=== PATIENT | male | born 1945 | race Caucasian/White ===

== ENCOUNTER 2016-11-07 09:35 | Day surgery (SDC) | payer OTHER ==
[2016-11-06 13:17] LABS: HEMATOCRIT 38.2 % (42.0-52.0); HEMOGLOBIN 12.4 g/dL (14.0-18.0); MCH 35.9 PG (27-31); MCHC 32.5 g/dL (33-37); MCV 110.7 FL (81-99); MPV 10.2 FL (7.4-10.4); RBC 3.45 XMIL (4.7-6.1)
[2016-11-07] MEDS ORDERED: NS 250 ML ONE (09:53)
[2016-11-07] MEDS ORDERED: TYLENOL ONE (09:53)
[2016-11-07] MEDS ORDERED: BENADRYL ONE (09:53)
[2016-11-07 12:11] VITALS: BP 117/60
== END 2016-11-07 11:40 | disposition home or self-care (01) ==
LOC: OPS 09:35
PROVIDERS: ATTEND Internal Medicine Hematology & Oncology
DX: D69.6 Thrombocytopenia, unspecified (principal); Z79.02 Long term (current) use of antithrombotics/antiplatelets; Z79.899 Other long term (current) drug therapy; Z79.82 Long term (current) use of aspirin
CPT/HCPCS: 85027; 86850; 86900; 86901; J7050; P9035

== ENCOUNTER 2016-12-26 13:58 | Day surgery (SDC) | payer OTHER ==
[2016-12-25 13:19] LABS: HEMATOCRIT 30.1 % (42.0-52.0); HEMOGLOBIN 9.6 g/dL (14.0-18.0); MCH 37.4 PG (27-31); MCHC 31.9 g/dL (33-37); MCV 117.1 FL (81-99); MPV 9.8 FL (7.4-10.4); RBC 2.57 XMIL (4.7-6.1)
[2016-12-26 13:49] VITALS: BP 114/64
[~2016-12-26 13:58] MED LIST: BENADRYL ONE; NS 250 ML ONE; TYLENOL ONE
== END 2016-12-26 14:01 | disposition home or self-care (01) ==
LOC: OPS 13:58
PROVIDERS: ATTEND Internal Medicine Hematology & Oncology
DX: D69.6 Thrombocytopenia, unspecified (principal); Z79.02 Long term (current) use of antithrombotics/antiplatelets; Z79.82 Long term (current) use of aspirin; Z79.899 Other long term (current) drug therapy
CPT/HCPCS: 36415; 36430; 85027; 86850; 86900; 86901; J7050; P9035

== ENCOUNTER 2019-03-01 11:24 | Inpatient (IN) ==
--- NOTE | 2019-03-01 12:28 | Diag Imaging Result Doc PS360 ---
EXAM: XRAY PELVIS W/HIP 2-3VW LT HISTORY: fall, left hip pain TECHNIQUE: Pelvis and left hip, three views COMPARISON: None. FINDINGS: No fracture. No dislocation. IMPRESSION: No acute bony injury. Electronically signed by Christian Martinez 03/01/2019 12:26 PM
--- NOTE | 2019-03-01 12:33 | Diag Imaging Result Doc PS360 ---
EXAM: RIBS BILATERAL W/PA CHEST HISTORY: fall TECHNIQUE: Chest and bilateral rib detail, seven views COMPARISON: None. FINDINGS: Poor inspiratory effort. No contusion or pneumothorax. No displaced fracture or pleural effusion identified. IMPRESSION: No injury. Electronically signed by Christian Martinez 03/01/2019 12:30 PM
--- NOTE | 2019-03-01 12:59 | Diag Imaging Result Doc PS360 ---
EXAM : CT HEAD/C-SPINE W/O CONTRAST HISTORY: fall TECHNIQUE: 1. CT head without contrast 2. CT cervical spine without contrast COMPARISON: None. FINDINGS: Head: No parenchymal hemorrhage. No epidural or subdural hematoma. No subarachnoid hemorrhage. Left encephalomalacia from an old infarct involving the middle cerebral artery. No mass identified on this noncontrasted exam. No hydrocephalus. No skull fracture. Cervical spine: There is reversal of the normal curvature most pronounced at C4-5. Mild scoliosis with mild degenerative bone spurring. No precervical soft tissue swelling. No fracture. IMPRESSION: Head: No hemorrhage. No injury. Cervical spine: No acute fracture. This exam was performed using automated exposure control, adjustment of mA or kV according to patient size, and/or use of iterative reconstruction technique. Electronically signed by Christian Martinez 03/01/2019 12:57 PM
--- NOTE | 2019-03-01 13:07 | Diag Imaging Result Doc PS360 ---
EXAM: CT T-SPINE/L-SPINE W/O CON HISTORY: fall, back injury TECHNIQUE: 1. CT thoracic spine without contrast 2. CT lumbar spine without contrast COMPARISON: None. FINDINGS: Thoracic spine: There is mild scoliosis. No fracture to the thoracic spine. No pleural effusions, contusion or pneumothoraces on the imaged portions of the lungs. Lumbar spine: There is a mild superior endplate compression fracture to the L1 vertebra. No adjacent hematoma. No other fracture to the lumbar spine. No spinal stenosis. No disc herniation. IMPRESSION: Thoracic spine: No acute fracture Lumbar spine: Mild L1 compression fracture, age indeterminate. This exam was performed using automated exposure control, adjustment of mA or kV according to patient size, and/or use of iterative reconstruction technique. Electronically signed by Christian Martinez 03/01/2019 1:04 PM
[2019-03-01 13:37] LABS: BASO# 0.56 X1000 (0.0-0.2); BASO% 3.9 % (0.0-0.8); EOS# 0.02 X1000 (0.0-0.7); EOS% 0.1 % (0.0-10.0); HEMATOCRIT 36.8 % (42.0-52.0); HEMOGLOBIN 12.4 g/dL (14.0-18.0); IMM GRAN# 0.16 X1000 (0.0-0.04); IMM GRAN% 1.1 % (0.0-0.5); LYMPH# 2.11 X1000 (1.2-3.4); LYMPH% 14.6 % (20.5-51.1); MCH 33.6 PG (27-31); MCHC 33.7 g/dL (33-37); MCV 99.7 FL (81-99); MONO# 0.97 X1000 (0.11-0.59); MONO% 6.7 % (1.7-9.3); NEUT# 10.61 X1000 (1.4-6.5); NEUT% 73.6 % (42.2-75.2); PLT 84 X1000 (130-400); RBC 3.69 XMIL (4.7-6.1); RDW 14.4 % (11.5-14.5); WBC 14.43 X1000 (4.8-10.8)
[2019-03-01 13:42] LABS: INR 1.02; PROTIME 14.2 Seconds (11.0-16.0)
[2019-03-01 13:53] LABS: PTT 23.8 Seconds (22.3-41.8)
[2019-03-01 13:55] LABS: AGAP 13; ALBUMIN 4.4 g/dL (3.5-5.0); ALKALINE PHOSPHATASE 98 U/L (32-122); BUN 27 mg/dL (8-22); CALCIUM 8.8 mg/dL (8.8-10.2); CHLORIDE 100 mmol/L (98-107); COSMO 283; CREATININE 0.9 mg/dL (0.7-1.2); ESTIMATED GFR > 60; GLUCOSE 106 mg/dL (70-104); GOT 14 U/L (10-34); GPT 18 U/L (10-44); POTASSIUM 3.9 mmol/L (3.5-5.1); SODIUM 139 mmol/L (136-145); TCO2 26 mmol/L (25-35); TOTAL PROTEIN 6.6 g/dL (6.3-8.3)
[2019-03-01 14:00] LABS: BASO 3 % (0-1); LARGE PLATELETS 2+; LYMPHS 16 % (21-51); MONO 8 % (1-9); SEGS 73 % (42-75)
[2019-03-01 15:13] LABS: URINE SOURCE CLEAN CATCH
[2019-03-01 15:15] LABS: BILIRUBIN URINE NEGATIVE (NEGATIVE); BLOOD URINE NEGATIVE (NEGATIVE); COLOR YELLOW; GLUCOSE URINE NEGATIVE (NEGATIVE); KETONE URINE NEGATIVE (NEGATIVE); LEUKOCYTES URINE NEGATIVE (NEGATIVE); NITRITE URINE NEGATIVE (NEGATIVE); PH URINE 5.5; PROTEIN URINE 100 mg/dL (NEGATIVE); SP GRAVITY URINE 1.027; TURBIDITY URINE CLEAR (CLEAR); UR EPITHELIAL CELLS <10 /HPF (<10); URINE BACTERIA NEGATIVE /HPF; URINE RBC <10 /HPF (<10); URINE WBC <10 /HPF (<10); UROBILINOGEN URINE NORMAL (NORMAL)
--- NOTE | 2019-03-01 18:56 | PROVIDER DOCUMENTATION ---
This chart was entered by Nydia Goodman Scribe, acting as scribe for Grant Lam CRNP. HPI-Musculoskeletal Pain/Inj - GENERAL Chief Complaint: Fall Stated Complaint: FALL - CAN'T WALK Time Seen by Provider: 03/01/19 11:34 Source: patient, family - HX OF PRESENT ILLNESS-MUSKULOSKELTAL Nature of Presenting Problem: Patient is a 73 y/o male who presents to the ED with left hip pain since yesterday afternoon following a fall at 1530. Pt reports he fell approximately 1 foot off of a landing. Pt was ambulatory after the fall per . states, "He walked around and he sat in his chair for a while. When it was time for him to go to bed, he didn't want to walk. He can walk today but he is dragging his left leg." Pt has residual R sided weakness and expressive aphasia due to prior CVA. states aphasia is chronic and is at baseline. She also states mental status is at baseline. Pt is alert. Denies head injury or LOC. Also presents with ecchymoses to right side of mid-back. Quality of Pain: reports: aching Severity in ED: mild Onset/Duration: 24 hours ago Timing: still present Modifying Factors: worse with: palpation Any recent injury?: Yes (fall) Locality of Occurance: Home Similar Symptoms Previously?: No Recently seen or treated by another doctor?: No - FALL INJURY Location of Pain/Injury: reports: back, lower extremity, other (L side) Pain Radiation: reports: no radiation Reason for Fall: reports: unknown Symptoms prior to fall:: reports: none Loss of Consciousness: no loss of consciousness Injury Associated Symptoms: reports: back/neck pain, joint pain (L hip), other (L side pain) - BACK & NECK PAIN/INJURY Back/Neck Pain Location: reports: paraspinous muscles Context / Method of Injury: reports: fall Associated Symptoms: reports: denies symptoms History of Chronic Neck or Back Pain?: No - HIP/PELVIS PAIN/INJURY Hip Pain Location: reports: hip (L) Pain Radiation: reports: no radiation Context / Method of Injury: reports: fall Associated Symptoms: reports: denies symptoms Review of Systems - Adult - REVIEW OF SYSTEMS - ADULT Constitutional: denies: chills, fever Eyes: reports: no symptoms reported Ears, Nose, Mouth & Throat: reports: no symptoms reported Cardiovascular: denies: chest pain, palpitations Respiratory: denies: cough, shortness of breath Gastrointestinal: denies: abdominal pain, diarrhea, nausea, vomiting Genitourinary: reports: no symptoms reported Musculoskeletal: reports: back pain, joint pain (L hip), other (L side pain) Integumentary: reports: no symptoms reported Neurological: denies: dizziness/vertigo, seizure Psychiatric: reports: no symptoms reported Endocrine: reports: no symptoms reported Hematologic/Lymphatic: reports: no symptoms reported Allergic/Immunologic: reports: no symptoms reported All Other Systems: Reviewed and Negative Past History - Adult - PAST MEDICAL HISTORY-ADULT Review of Records: reports: Old Records Reviewed, Nursing Assessment Review, Medications Reviewed Major Childhood Illnesses: reports: denies history Neurological: reports: CVA, Seizures/Epilepsy - PRIOR SURGERIES/PROCEDURES Surgical/Procedure History: reports: appendectomy, orthopedic (extremity) (R hip) - IMMUNIZATION STATUS Childhood Immunizations: See Nurse Assessment Flu Vaccine: See Nurse Assessment - FAMILY HISTORY Family History: reviewed, not pertinent - SOCIAL HISTORY Smoking: quit greater than 1 year Substance Use: none/never Alcohol Use Frequency: sober (former use) Living Situation: family Physical Exam-Injury Related - Physical Exam-Injury Related Initial Vital Signs Reviewed: Yes General Appearance: alert, no apparent distress. negative: lethargic, slow to respond Eyes: PERRL/EOMI, pink conjunctivae Head, Ears, Nose, Mouth & Throat: normocephalic/atraumatic, moist mucous membranes, normal ENT inspection Neck: non-tender, full range of motion, supple, normal inspection. negative: C- spine tenderness, decresed ROM, ecchymosis, trachial deviation, tender lateral, tender midline, vertebral point tenderness Respiratory: chest non-tender, lungs clear, normal breath sounds, no pleuratic chest pain, no respiratory distress, no accessory muscle use, ecchymosis (Right side of middle back). negative: crepitus, flail chest, palpable fracture, paradoxical movements, rib tenderness Cardiovascular: normal peripheral pulses, regular rate, rhythm, no edema, no gallop, no murmur Abdominal Exam: normal bowel sounds, non tender, soft. negative: distended, gua rding, rigid, rebound, tenderness Back Exam: normal inspection, no CVA tenderness, no vertebral tenderness, ecch ymosis (Right side of middle of back.). negative: vertebral tenderness Extremity: normal range of motion, normal capillary refill, tenderness (Lateral aspect of left hip.) Integumentary: normal color, warm/dry, ecchymosis (to R mid back). negative: cyanosis, diaphoresis, jaundice, mottled, pallor Neurologic: grossly normal, no motor/sensory deficits, abnormal gait (Attempted to ambulate pt. Pt able to stand and bear weight on both legs, but will not put left foot forward as he usually does. states gait is altered.), aphasia (gargled speech- baseline from prior CVA per ), motor weakness (R sided weakness- baseline from prior CVA), other (Pt able to lift left leg off of the bed and able to move left leg. When he stands, he will no longer move left leg.) . negative: facial droop Psych/Mental Status: normal mood/affect, normal thought content, normal thought process - Glascow Coma Score Best Eye Response (Evy): (4) open spontaneously Best Verbal Response (Evy): (2) incomprehsible sounds (Aphasia/garbled speech due to prior cva) Best Motor Response (Evy): (6) obeys commands Progress - PLAN OF CARE/RESULTS Progress/Plan/Lab Results: Vital Signs - 8 hr 03/01/19 11:27 Temperature 97.3 F L Pulse Rate 82 Respiratory Rate 16 Blood Pressure 137/89 O2 Sat by Pulse Oximetry 97 Laboratory Results - last 24 hr 03/01/19 03/01/19 03/01/19 13:20 13:20 13:20 WBC 14.43 H RBC 3.69 L Hgb 12.4 L Hct 36.8 L MCV 99.7 H MCH 33.6 H MCHC 33.7 RDW Std Deviation 14.4 Plt Count 84 L MPV 10.0 Immature Gran % (Auto) 1.1 H Neut % (Auto) 73.6 Lymph % (Auto) 14.6 L Grant % (Auto) 6.7 Eos % (Auto) 0.1 Baso % (Auto) 3.9 H Immature Gran # (Auto) 0.16 H Neut # (Auto) 10.61 H Lymph # (Auto) 2.11 Grant # (Auto) 0.97 H Eos # (Auto) 0.02 Baso # (Auto) 0.56 H Segmented Neutrophils 73 Lymphocytes 16 L Monocytes 8 Basophils 3 H Large Platelets 2+ PT 14.2 INR 1.02 PTT (Actin FS) 23.8 Sodium 139 Potassium 3.9 Chloride 100 Carbon Dioxide 26 Anion Gap 13 BUN 27 H Creatinine 0.9 Estimated GFR/1.73 m2 > 60 BUN/Creatinine Ratio 30 Glucose 106 H Calculated Osmolality 283 Calcium 8.8 Total Bilirubin 0.90 AST 14 ALT 18 Alkaline Phosphatase 98 Troponin T Total Protein 6.6 Albumin 4.4 Globulin 2.2 Albumin/Globulin Ratio 2.0 Urine Source Urine Color Urine Turbidity Urine pH Ur Specific [place] Urine Protein Ur Glucose (Stick) Ur Ketones (Stick) Urine Blood Urine Nitrite Urine Bilirubin Urobilinogen Dipstick Urine Leukocytes Urine WBC (Auto) Urine RBC (Auto) U Epithel Cells (Auto) Urine Bacteria (Auto) 03/01/19 03/01/19 13:20 15:00 WBC RBC Hgb Hct MCV MCH MCHC RDW Std Deviation Plt Count MPV Immature Gran % (Auto) Neut % (Auto) Lymph % (Auto) Grant % (Auto) Eos % (Auto) Baso % (Auto) Immature Gran # (Auto) Neut # (Auto) Lymph # (Auto) Grant # (Auto) Eos # (Auto) Baso # (Auto) Segmented Neutrophils Lymphocytes Monocytes Basophils Large Platelets PT INR PTT (Actin FS) Sodium Potassium Chloride Carbon Dioxide Anion Gap BUN Creatinine Estimated GFR/1.73 m2 BUN/Creatinine Ratio Glucose Calculated Osmolality Calcium Total Bilirubin AST ALT Alkaline Phosphatase Troponin T < 0.010 Total Protein Albumin Globulin Albumin/Globulin Ratio Urine Source CLEAN CATCH Urine Color YELLOW Urine Turbidity CLEAR Urine pH 5.5 Ur Specific [place] 1.027 Urine Protein 100 A Ur Glucose (Stick) NEGATIVE Ur Ketones (Stick) NEGATIVE Urine Blood NEGATIVE Urine Nitrite NEGATIVE Urine Bilirubin NEGATIVE Urobilinogen Dipstick NORMAL Urine Leukocytes NEGATIVE Urine WBC (Auto) <10 Urine RBC (Auto) <10 U Epithel Cells (Auto) <10 Urine Bacteria (Auto) NEGATIVE Orders Category Date Time Status Nursing- Obtain EKG ONCE Care 03/01/19 11:53 Active Resuscitation Status Routine Care 03/01/19 18:[address] HEAD/C-SPINE W/O CONTRAST [CT] Stat Exams 03/01/19 11:[address] T-SPINE/L-SPINE W/O CON [CT] Stat Exams 03/01/19 11:55 Completed RIBS BILATERAL W/PA CHEST [RAD] Stat Exams 03/01/19 11:52 Completed XRAY PELVIS W/HIP 2-3VW LT [RAD] Stat Exams 03/01/19 11:52 Completed CBC WITH DIFF [HEME] Stat Lab 03/01/19 13:20 Completed COMPREHENSIVE METABOLIC PANEL [CHEM] Stat Lab 03/01/19 13:20 Completed PROTIME WITH INR [COAG] Stat Lab 03/01/19 13:20 Completed PTT [COAG] Stat Lab 03/01/19 13:20 Completed TROPONIN T Stat Lab 03/01/19 13:20 Completed UA NIMS W/REFLEX CULT [URINALYSIS] Stat Lab 03/01/19 15:00 Completed EKG [EKG] Stat Ther 03/01/19 11:53 Ordered Transfer/Admit Order [TRANSFER] Routine Transfer 03/01/19 18:08 Ordered 1600- Discussed admission with who states she wants to think about it. Disposition delayed. 1609- Dr. Mandy perez for admission. Pt and in agreement with admission plan. Result Diagrams: 03/01/19 13:20 03/01/19 13:20 - EKG 1 Time of EKG reading by physician:: 13:07 EKG Read and Signed by:: Casimiro Morrell EKG Interpretation (*Must complete 3 of following elements*): Normal Rate: 69 Rhythm: NSR [place]: normal QRS: LVH (minimal voltage criteria; may be normal variant) CT Interval: normal ST Wave: normal - XRAY 1 XRAY: Left XRAY Study: Pelvis, Hip (IMPRESSION: No acute bony injury. Electronically signed by Christian Martinez 03/01/2019 12:26 PM) 2 XRAY: Bilateral XRAY Study: Chest (IMPRESSION: No injury. Electronically signed by Christian Martinez 03/01/2019 12:30 PM), Ribs - CT/MRI 1 CT Study: Cervical Spine (IMPRESSION: Head: No hemorrhage. No injury. Cervical spine: No acute fracture. This exam was performed using automated exposure control, adjustment of mA or kV according to patient size, and/or use of iterative reconstruction technique. Electronically signed by Christian Martinez 03/01/2019 12:57 PM), Head 2 CT Study: Lumbar Spine (&T-spine: IMPRESSION: Thoracic spine: No acute fracture Lumbar spine: Mild L1 compression fracture, age indeterminate. This exam was performed using automated exposure control, adjustment of mA or kV according to patient size, and/or use of iterative reconstruction technique. Electronically signed by Christianbandar Martinez 03/01/2019 1:04 PM 03/01/19 1875) - CONSULTS/PCP/HOSPITALIST Notification #1 *Consult/PCP/Hospitalist*: Dr. Galvan Time Discussed: 16:25 Reason/Comments: admission Consult Disposition: Will see in ED (Md states he will be here in approximately 30 min and will enter orders.) Departure - Departure Date of Disposition Decision: 03/01/19 Time of Disposition Decision: 16:29 DIAGNOSIS: Compression fracture, Altered gait Fall Qualifiers: Encounter type: initial encounter Qualified Code(s): W19.XXXA - Unspecified fall, initial encounter Disposition: ADMITTED INPATIENT 09 Certified Medical Emergency: Emergent Condition: Stable Referrals and Follow-Ups: Denilson Rizvi MD [Primary Care Provider] - - Critical Care Note This patient required my direct & personal management of CC.: No Attestation - Physician/ HECTOR Attestation Patient care was provided by Advanced Practice Provider:: Yes Advanced Practice Provider:: Grant Lam Advanced Practice Provider documentation review:: The Mid-level provider documentation, treatment plan and medical decision making was reviewed by the physician who agrees with all treatment and medical decision making by the P. The physician spent face to face time with patient:: No Advanced Practice Provider documentation review:: Supervising physician onsite and consulted in the evaluation and care of this patient. The physician did not have a face to face encounter with the patient. - NIH Stroke Scale NIH Type: Initial Evaluation Level of Consciousness: 0-Alert LOC Commands (ask to open & close eyes;make a fist, let go): 0-Obeys Both Correctly Best Gaze (horizontal eye movement): 0-Normal Visual (use finger movement, counting or visual threat): 0-No Visual Loss Facial Palsy (show teeth or raise eyebrows & close eyes tght: 0-Symmetrical Movement Motor Function-left arm: 0-Normal Motor Function-right arm: 2-Some Effort Against [place] Motor Function-left le-Some Effort Against [place] Motor Function-right le-Some Effort Against [place] Sensory(pin prick to face,arms,trunk,legs-compare side/side): 0-No Ataxia Best Language(name item/read sentence.Ex-Down to Earth): 2-Severe Aphasia (chronic) Dysarthria(Pt read words or say words Ex.Mama,Tip-Top,Thanks: 2-Near Unintelligible (chronic) This chart was documented by the indicated scribe, (Nydia Goodman, Scribe) and accurately reflects the services I performed and decisions made by me, Grant Lam CRNP, as attested by the provider's signature.
--- NOTE | 2019-03-01 20:58 | HISTORY AND PHYSICAL ---
CHIEF COMPLAINT: Inability to walk. HISTORY OF PRESENT ILLNESS: Mr. Pedraza is a 73-year-old gentleman who was brought to the emergency room by his and daughter after it became apparent this morning that he would not recover his ability to walk. He had a left carotid occlusive stroke in 2004. This caused a right hemiparesis and aphasia. He is left handed. He normally is able to walk quite well and independently, but with a gait favoring his right leg. His speech remains garbled with expressive aphasia, but he is able to communicate through gestures. Yesterday afternoon he was in his den and lost his balance and fell, hitting his right flank. His was able to get him back to his feet, and they walked up several stairs from the converted garage into the house and to his recliner. He did not seem to have difficulty walking at that time. When it was time for bed, he was unable to get up out of the recliner, and his let him sleep in the recliner all night. This morning, although he could move both legs and seems to have relatively normal strength, he does not remember how to walk, and his feet seem stuck to the floor. He is alert, and when I entered the emergency room where he was, he was eating a fast food dinner and seemed to be swallowing fine. He has a history of myelodysplastic syndrome followed by Dr. Ortiz since approximately 2016. He has had multiple bone marrow biopsies and has had several courses of a chemotherapeutic agent, Dacogen, at Dr. Ortiz's office. His original stroke in 2004 was evaluated in [place], and his neurologist was Dr. Dorene Angel. Dr. Angel had him on aspirin 325 mg plus Plavix [address] Ortiz began seeing him, the aspirin was reduced to 81 mg. His primary care provider is YESICA Olivo. PAST MEDICAL HISTORY: In addition to the above, he has a vague history of cardiovascular disease and high cholesterol. PAST SURGICAL HISTORY: Remarkable for a hip fracture in 2005. He also has a history of appendectomy and left knee surgery. He has a history of allergy to Naproxen. FAMILY HISTORY: Mother had rheumatoid arthritis. He has a sister with thyroid disease and non- Hodgkin lymphoma. SOCIAL HISTORY: He is and lives with his . He has 2 adult daughters. 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 He does not use alcohol or tobacco but has a very remote history of smoking. REVIEW OF SYSTEMS: GENERAL: No fever, chills, headache, night sweats or weight loss. HEENT: Denies any changes in vision or hearing. He wears glasses. CARDIOVASCULAR: No recent chest pain, angina, ischemic heart disease or valvular heart disease. No history of palpitations or syncope. RESPIRATORY: No cough, shortness of breath, or sputum production. GI: No abdominal pain. Appetite has been good. No diarrhea, constipation, nausea or vomiting. : No dysuria. MUSCULOSKELETAL: He denies back pain. He does have some right flank soreness where he had a bruise from falling last night. DERMATOLOGIC: No rash or itching. NEUROLOGIC: Cranial nerve examination is unremarkable. He does have some apraxia and decreased coordination of his right hand. PSYCHOLOGICAL: He is alert and does not appear depressed. ENDOCRINE: No history of diabetes or thyroid disorders. PHYSICAL EXAMINATION: VITAL SIGNS: Unremarkable. See nurse's notes. GENERAL APPEARANCE: Alert, cooperative gentleman who appears somewhat younger than his stated age. He is cheerful and pleasant, although his speech is an unintelligible word salad. HEENT: Pupils equal, round and reactive to light. Extraocular movements are intact. Oropharynx is benign. NECK: Supple with no adenopathy, JVD, thyromegaly or bruits. CHEST: Clear to auscultation and percussion anteriorly and posteriorly. CARDIOVASCULAR: Regular rate and rhythm. No murmurs or gallops. ABDOMEN: Soft, flat and nontender with active bowel sounds. There is no guarding or rebound tenderness. Back: no point tenderness, + recent ecchymoses right flank and left SI areas GENITAL/RECTAL EXAM: Omitted. EXTREMITIES: Motor strength is at least 4/4 in both legs; however, when he attempts to walk, his feet seem glued to the ground. 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 His right arm has much less dexterity. His left arm is unremarkable. LABORATORY DATA: Mild leukocytosis with a white blood count of 14,000. Mild anemia with hemoglobin of 12.4, hematocrit of 36.8. Chemistry profile is normal with a glucose of 6. CT of the head and C-spine shows old left encephalomalacia. CT of the thoracic and lumbar spine shows mild superior endplate compression of the L1 vertebra with no adjacent hematoma, and age is felt to be indeterminate. The lack of tenderness on his back suggests that it is a chronic condition. ASSESSMENT: 1. 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 I see no obvious connection between these. It is possible he could have had another small stroke, and that led to the fall and his current apraxia. 2. History of myelofibrosis/myelodysplastic syndrome. 3. History of pulmonary embolism. 4. Mild leukocytosis with a white blood count of 14,000. 5. Mild anemia with hemoglobin of 12.4, hematocrit of 36.8. TREATMENT PLAN: Will admit to Dr. Robison for observation and stabilization. I think he deserves an MRI scan to look for a recent stroke, and he may require physical therapy. His seems quite capable and may be able to handle him at home. She already has a gait belt around his waist and says that he used this 15 years ago when he had a stroke. cc: Simone Galvan MD MTDD
[2019-03-01] MEDS: PLAVIX PO SCH (22:26)
[2019-03-01] MEDS: LOVENOX SUBQ SCH (22:26)
[2019-03-02] MEDS: ASPIRIN PO SCH (10:14)
--- NOTE | 2019-03-02 10:55 | PROGRESS NOTE ---
DATE: 03/02/2019 SUBJECTIVE: A 73-year-old was brought in the emergency department. and daughter brought him in after apparently he would not recover his ability to walk. 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 He is left handed. Normally able to walk quite well independently, but the gait favoring his right leg. His speech remains garbled and expressive aphasia, but he is able to communicate with gestures. Yesterday. the day before admission, he was in his den, lost his balance, fell, hitting his right flank. His was able to get him back to his feet. He walked up several flights of stairs from the converted garage into the house and to his recliner. He did not seem to have difficulty walking at the time. When it was time for bed he was unable to get out of the recliner. His let him sleep in the recliner that night. In the morning, could not move. Both leg seemed to be relatively normal strength. He did not seem to remember how to walk and his feet seen stuck to the floor. He was alert when he entered the emergency room. He has a history of myelodysplastic syndrome followed by Dr. Ortiz apparently since 2016, multiple bone marrow biopsies, several courses of chemotherapeutic agents and Decadron per Dr. Ortiz. His original stroke was 2004. Evaluated in [place] by neurologist. Dr. Dorene Angel had him on aspirin 325 mg a day, Plavix 75 mg a day. Past history includes hip fracture in 2005, history of appendectomy and left knee surgery so admitted with new onset of gait a apraxia following his fall. I see no obvious connection between these and possibly could have another stroke. He has underlying history of myelofibrosis, myelodysplastic syndrome, history of pulmonary embolism in the past. He presented with mild leukocytosis. Hemoglobin was 12, hematocrit was 36. EXAM: He is awake. He was he was sleeping but easy to arouse awake and had no complaints.Vital Signs: Temp 97.7 degrees, pulse 78, respirations 16, blood pressure 131/70. HEENT: Pupils are equal and round. Lungs: Clear in all lung arshad anterolateral. Cardiovascular: Regular rhythm and rate without murmur or S3. Abdomen: Soft. Skin: Warm and dry. LABS: From yesterday, white count 14,430, hematocrit 36, platelet count 84,000 sodium 139, potassium 3.9, chloride 100, BUN 27, creatinine 0.9, AST was 14, ALT was 18. Troponin less than 0.01. Urinalysis unremarkable. Review of all his films: Head and cervical spine CT, no hemorrhage, no injury, no acute fractures. Hip and pelvis x-ray: No acute bony injury. Ribs and chest x-ray no injury. No sign of fractured ribs. Thoracic, lumbar spine CT: Thoracic spine no acute fracture. Lumbar spine, mild L1 compression fracture age indeterminate. He has his left sided partial paresis seems to be unchanged. His expressive aphasia unchanged. He seems to understand questions and can respond appropriately. ASSESSMENT AND PLAN: 1. New onset severe gait apraxia following a fall. I do not see any bony fractures but possible L1 fracture which appears to be old age indeterminate. He could have had another stroke. We will check carotids and echocardiogram. Watch and see if there is signs of atrial fibrillation. Ask Neurology to assist tomorrow. 2. History of myelofibrosis, myelodysplastic syndrome. Aware. His blood counts look stable. 3. History of pulmonary embolism in the past. 4. Mild leukocytosis, nonspecific, could be just bone marrow demargination or could be related to his myelofibrosis. 5. Mild anemia. Once again, could be related to his fibrosis. REVIEW OF ORDERS: He is on his aspirin 81 mg a day, Plavix 75 mg a day. He is getting Lovenox 40 mg subcutaneous q.24 hours for DVT prophylaxis. MRI is planned for of his head. I will get Neurology involved tomorrow. Dr. Ortiz is aware of his of his admission. Repeat his CBC and electrolytes tomorrow. We will check T4, TSH, B12 and folate. cc: MD Simone Mejias MD
[2019-03-02] MEDS ORDERED: DULCOLAX PR ONE (15:33)
[2019-03-02] MEDS ORDERED: MILK OF MAGNESIA PO PRN (15:34)
[2019-03-02] MEDS: PLAVIX PO SCH (21:55)
[2019-03-02] MEDS: LOVENOX SUBQ SCH (21:55)
[2019-03-03 07:30] LABS: BASO# 0.35 X1000 (0.0-0.2); BASO% 3.2 % (0.0-0.8); EOS# 0.06 X1000 (0.0-0.7); EOS% 0.6 % (0.0-10.0); HEMATOCRIT 34.8 % (42.0-52.0); HEMOGLOBIN 11.5 g/dL (14.0-18.0); IMM GRAN# 0.04 X1000 (0.0-0.04); IMM GRAN% 0.4 % (0.0-0.5); LYMPH# 1.98 X1000 (1.2-3.4); LYMPH% 18.2 % (20.5-51.1); MCH 33.1 PG (27-31); MCV 100.3 FL (81-99); MONO# 0.49 X1000 (0.11-0.59); MONO% 4.5 % (1.7-9.3); MPV 10.7 FL (7.4-10.4); NEUT# 7.95 X1000 (1.4-6.5); NEUT% 73.1 % (42.2-75.2); PLT 80 X1000 (130-400); RBC 3.47 XMIL (4.7-6.1); RDW 14.9 % (11.5-14.5); WBC 10.87 X1000 (4.8-10.8)
[2019-03-03 07:57] LABS: AGAP 14; BUN 32 mg/dL (8-22); CALCIUM 8.5 mg/dL (8.8-10.2); CHLORIDE 100 mmol/L (98-107); COSMO 287; CREATININE 0.7 mg/dL (0.7-1.2); ESTIMATED GFR > 60; GLUCOSE 106 mg/dL (70-104); MAGNESIUM 2.2 mg/dL (1.5-2.7); POTASSIUM 3.8 mmol/L (3.5-5.1); SODIUM 140 mmol/L (136-145); TCO2 26 mmol/L (25-35)
[2019-03-03 08:21] LABS: FREE T4 1.23 ng/dL (0.93-1.70); TSH 3.41 uIUmL (0.27-4.20)
--- NOTE | 2019-03-03 08:47 | EKG Report ---
Test Performed on : 03/01/2019 1:07:11 PM Test Reason : loss of balance Blood Pressure : / mmHG Vent. Rate : 069 BPM Atrial Rate : 069 BPM P-R Int : 126 ms QRS Dur : 090 ms QT Int : 420 ms P-R-T Axes : -13 -17 006 degrees QTc Int : 450 ms Normal sinus rhythm. Moderate voltage criteria for LVH, may be normal variant Borderline ECG No previous ECGs available Unconfirmed Result
--- NOTE | 2019-03-03 09:59 | PROGRESS NOTE ---
DATE: 03/03/2019 SUBJECTIVE: Mr. Pedraza is feeling better. His legs are stronger. He did well with physical therapy. I think the plan is to get an MRI of his head today. I was going to ask neurology to look and see. It looks like this may have been just musculoskeletal from laying in the recliner and a recent fall. I am not sure there is any new neurologic progression. His says his speech on his left side seems to be about the same. He is swallowing fine. He understands the conversation. OBJECTIVE: Temperature 98 degrees, pulse 76, respirations 18, blood pressure 135/83. Pupils are equal and round. Lungs are clear in all lung arshad. Cardiovascular exam regular rhythm and rate without murmur or S3. Abdomen is soft. Skin is warm and dry. LABORATORY: White count 68151, hematocrit 34, and platelet count 80,000. Sodium 140, potassium 3.8, chloride 100, BUN 32, and creatinine 0.7. B12 was greater than 2,000. TSH 3.41, T4 is 1.23. ASSESSMENT AND PLAN: 1. New onset severe gait apraxia following a fall. Seems to have improved. Physical Therapy evaluating. He did have a questionable subacute L1 partial vertebral fracture, but he does not seem to be in a lot of pain, and I am not sure that that has contributed to anything. We will check an MRI of his head. Ask Neurology to evaluate. 2. History of myelofibrosis. Myelodysplastic syndrome. His counts look pretty stable. 3. Distant history of pulmonary embolism in the past. 4. Mild leukocytosis, nonspecific. I do not find any source of infection. 5. Mild anemia I think related to his myelofibrosis and myelodysplastic syndrome. ORDERS: He is on Plavix 75 mg a day, aspirin 81 mg a day. He is getting Lovenox 40 mg subcutaneous q.24 hours. I appreciate the help. Dr. Ortiz following. Dr. Leos following. His MRI of the brain, I think, was ordered, and I do not think that has been done yet. cc: MD Simone Mejias MD
[2019-03-03] MEDS: ASPIRIN PO SCH (10:39)
--- NOTE | 2019-03-03 13:11 | Diag Imaging Result Doc PS360 ---
MRI BRAIN W/WO CONTRAST - 03/02/2019 INDICATION: gait apraxia COMPARISON: Head CT 03/01/2019 FINDINGS: There is no area of restricted diffusion. There is a stable large area of old encephalomalacia of the right cerebral hemisphere involving the entire middle cerebral artery territory. There is some surrounding gliosis. There is some minimal cerebral white matter chronic microvascular disease. There is complete occlusion of the supraclinoid left internal carotid artery. The left-sided cerebral arteries are apparently perfused by an anterior communicating artery. No intracranial mass or hemorrhage. IMPRESSION: No acute process. Electronically signed by Rishi Albarran 03/03/2019 1:09 PM
[2019-03-03] MEDS ORDERED: GRANIX SUBQ ONE (13:29)
--- NOTE | 2019-03-03 13:55 | CONSULTATION ---
DATE OF CONSULTATION: 03/03/2019 Mr. Pedraza is 73 years old and he had a recent fall with persistent gait difficulty. History from the patient is difficult because of his baseline dysphasia. History is provided by his attentive and review of the hospital records. Mr. Pedraza had large dominant left hemisphere stroke about 15 years ago with persistent right hemiparesis and dysphasia. His recovery was incomplete. He had hemiparetic gait after that. Receptive language function recovered more than expressive function. Three days ago, he was helping his move a heavy box through his home, trying to get it up some steps. He suddenly fell backward and bruised his left arm. was present and immediately attended him. She helped him prop up so he could rest a little while before trying to stand. She got some help from neighbor and he was helped to a sitting position. He rested a while and then seemed to have difficulty when he attempted to stand. noted that his feet seemed stuck to the floor. He could move each leg while seated. His power seemed to be near baseline while seated. 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 There was no change in his language deficit. She is certain that he did not strike his head when he fell. There was never altered consciousness or altered awareness. He was not able to get to bed that night so he slept in the recliner. Next morning, he was still unable to walk so he presented to the emergency room, was evaluated and admitted. This morning, gait has been much improved and reports he was able to take steps with assistance of physical therapy. According to , she has never seen him have this gait appearance before. This is clearly different from the initial gait difficulty he had after stroke 15 years ago. He had not had any recent deterioration in gait. There is no history of head injury. He has not had other stroke. He has not seemed more forgetful than baseline. He is being treated for myelodysplastic disorder. He had a course of chemotherapy the morning before his recent fall. Sometimes he seems a little bit tired after those treatments, but has never noticed any gait difficulty specifically associated with those treatments. Past history is remarkable for stroke as above, myelodysplastic syndrome as above, right hip fracture 2005, left knee surgery. He had pulmonary embolus within a few weeks of his initial stroke while he was in rehab. He has not had any other blood clotting problems. His medicines include aspirin and clopidogrel together. Aspirin dose has been reduced. He has low platelet count which attributes to his chemotherapy. Lab work here showed WBC count 14,000 initially, down to 10,000 on second check. Platelet count has been around 80,000. BUN climbed from 20s into 30s. Blood sugars have been stable right around 100. We do not have urine drug screen this admission. He has been afebrile this admission. Heart rate has ranged 70s to 100s. Systolic blood pressures have ranged 120s to 140s. Initial noncontrast CT showed the old left encephalomalacia with nothing acute. Brain MRI today done with and without contrast shows the old left hemisphere infarction but nothing acute, no new lesion, no bleeding, no mass. On exam, Mr. Pedraza is awake, alert, attentive. He seems appropriate. He said a few words that I could understand but mostly communicated with gestures, mostly head nodding. He followed simple commands inconsistently. He was not able to follow more complicated commands. He has full visual arshad tested grossly by confrontational finger counting. Facial motility remains a little bit diminished on the right. Gag is intact. Tongue is midline. He can hear. He has 3/5 to 4/5 power in the right limbs. On the left, power is good throughout. Initially, he did not raise his left arm well at the shoulder but I believe this is related to discomfort and there is a good bit of bruising mostly along the posterior aspect of the left upper arm. Allowing for that, I believe he has good power and baseline level of muscle strength in the left arm. Left leg power is good. He did well with left [id number]. He did rapid alternating movements well with the left hand. Tone is increased in the right limbs. I did not test his gait extensively but I did help him to a standing position and he was able to take 1 step to transfer to bedside commode. IMPRESSION: 1. Right hemiparesis and dysphasia. I believe these deficits are at baseline. 2. Recent fall as he was attempting to move a heavy box up some steps. There is report that there was no head injury or altered consciousness. 3. Gait difficulty apparent after his recent fall. 's description is very suggestive of apraxia, but acute onset is not typical and she reports he has not had definite cognitive impairment. Apraxia might be associated with acute infarction, but we do not find evidence of that on MRI. Apraxia might be associated with medication or other ingestion, but there is no history of that. Gait apraxia is often seen with Parkinson's disease, but history does not suggest any chronic apraxia and he does not have other parkinsonian features. I wonder if he might have had combination of gait problems including old hemiparetic gait, chronic degenerative joint problems, previous right hip fracture, previous left knee surgery, possibly new musculoskeletal discomfort after falling. He seems significantly improved now. I think we should continue gait training with physical therapy. I do not think we need any other neurologic workup urgently. If he continues to have difficulty, we might consider EMG later. Thanks for asking Neurology to see Mr. Pedraza. cc: MD Simone Osorio III, MD MTDArnold
--- NOTE | 2019-03-03 16:34 | DISCHARGE SUMMARY ---
ADMISSION DATE: 03/01/2019 DISCHARGE DATE: HISTORY OF PRESENT ILLNESS/HOSPITAL COURSE: This is a 73-year-old had recent fall and persisting gait difficulty. History from patient difficult because of baseline dysphagia. History provided by his who is very attentive. He 15 years ago had a CVA with persistent right hemiparesis and dysphagia and this really has not changed much. He has a right hemiparetic gait but is walking. Apparently, he was carrying a heavy box, trying to get up some steps. He suddenly fell backward and bruised his left arm. was present and attended to him, propped him up so he could rest a little before trying to stand. She got some help from her neighbor and helped him into sitting position. He rested a while and then seemed to have difficulty when he attempted to stand. noted that at first his feet seemed stuck to the floor. He could move each leg while seated. His power seemed to be near baseline while seated. 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 There was no change in his language deficit. He was certain he did not strike his head when he fell. There was never altered consciousness or altered awareness. He was not able to get out of bed that night, so he slept in a recliner. Next morning he was unable to walk as he presented to the emergency room, was evaluated and admitted. His gait improved the following day, able to take steps with assistance of physical therapy and so we did a CT of his head and neck and it was unremarkable. No sign of fracture. We did an MRI of his head, which was unremarkable. Did not show any new CVA. So, no acute process. No area of restricted diffusion. Stable large area of old encephalomalacia in the right cerebral hemisphere involving the entire middle cerebral artery territory. There was some surrounding gliosis, minimal cerebral white matter, chronic microvascular disease. Complete occlusion of the supraclinoid left internal carotid artery. The left side cerebral arteries are apparently perfused by the anterior communicating artery and no sign of mass or hemorrhage. The patient felt better, felt that his symptoms probably are combination of gait difficulty. Dr. Leos evaluated gait difficulty apparent after his recent fall. 's description is very suggestive of apraxia, but acute onset of apraxia is not typical, and he has not had any definite cognitive impairment. Apraxia may be associated with acute infarction. I do not find any evidence on the MRI or neurologic exam. Apraxia might be associated with medication or other ingestion, but there is no history to support that. Gait apraxia is often seen with Parkinson disease, but history does not suggest that either. He has not had any history of chronic apraxia and does not have Parkinson's like features, so suspect this is a combination of a gait problems including old hemiparetic gait, chronic degenerative joint disease, previous right hip fracture, previous left knee surgery, possibly new musculoskeletal discomfort after the fall. So, we will let him go home. We will continue his previous medications. Blood pressures look good. His lab was really unremarkable. He had a mild leukocytosis when he came in, which I suspect is probably just stressed demyelinating process. Renal function looks good and electrolytes so we will let him go. MEDICATIONS: He takes aspirin 81 mg a day, Plavix 75 mg a day, milk of magnesia as needed, and he gets his Granix 480 mcg subcutaneous daily so he can either get that today or tomorrow. That is for his myelodysplastic syndrome. Note that is counts in regards to myelodysplastic syndrome look good. White count 10,870, hematocrit is 34, platelet count is 80,000. cc: MD Simone Mejias MD
[2019-03-03] MEDS: PLAVIX PO SCH (20:25)
[2019-03-03] MEDS: LOVENOX SUBQ SCH (20:25)
[2019-03-04] MEDS ORDERED: GRANIX SUBQ SCH (09:00)
[2019-03-04 09:52] LABS: BASO# 0.56 X1000 (0.0-0.2); BASO% 0.7 % (0.0-0.8); EOS# 0.06 X1000 (0.0-0.7); EOS% 0.1 % (0.0-10.0); HEMATOCRIT 31.8 % (42.0-52.0); HEMOGLOBIN 10.6 g/dL (14.0-18.0); IMM GRAN# 2.38 X1000 (0.0-0.04); IMM GRAN% 3.1 % (0.0-0.5); LYMPH# 2.39 X1000 (1.2-3.4); LYMPH% 3.1 % (20.5-51.1); MCH 33.5 PG (27-31); MCHC 33.3 g/dL (33-37); MCV 100.6 FL (81-99); MONO# 0.88 X1000 (0.11-0.59); MONO% 1.1 % (1.7-9.3); MPV 9.7 FL (7.4-10.4); NEUT# 71.68 X1000 (1.4-6.5); NEUT% 91.9 % (42.2-75.2); PLT 66 X1000 (130-400); RBC 3.16 XMIL (4.7-6.1); RDW 14.8 % (11.5-14.5); WBC 77.95 X1000 (4.8-10.8)
[2019-03-04] MEDS: ASPIRIN PO SCH (09:53)
[2019-03-04 10:00] LABS: BANDS 6 % (0-1); LYMPHS 4 % (21-51)
[2019-03-04 10:05] LABS: SEGS 90 % (42-75)
[2019-03-04 10:06] LABS: AGAP 11; ALB/GLOB RATIO 1.6; ALBUMIN 3.6 g/dL (3.5-5.0); ALKALINE PHOSPHATASE 95 U/L (32-122); BUN 21 mg/dL (8-22); CALCIUM 8.5 mg/dL (8.8-10.2); CHLORIDE 104 mmol/L (98-107); COSMO 286; CREATININE 0.6 mg/dL (0.7-1.2); ESTIMATED GFR > 60; GLUCOSE 123 mg/dL (70-104); GOT 14 U/L (10-34); GPT 16 U/L (10-44); SODIUM 141 mmol/L (136-145); TCO2 26 mmol/L (25-35); TOTAL BILIRUBIN 1.17 mg/dL (0.20-1.00); TOTAL PROTEIN 5.8 g/dL (6.3-8.3)
--- NOTE | 2019-03-04 16:29 | PROGRESS NOTE ---
DATE: 03/04/2019 SUBJECTIVE: Seems to be doing better. His PT report, he has difficulty walking. The patient continues to participate. He did maintain balance with hand support, full weightbearing, minimal assistance, front wheel walker so we will see how we do. If he is not significantly better tomorrow, then they may want to consider rehab. OBJECTIVE: Vital Signs: He remains afebrile, temperature 98.5 degrees, pulse 80, respirations 22, blood pressure 119/74. HEENT: Pupils are equal and round. Lungs: Clear in all lung arshad. Cardiovascular: Regular rate without murmur or S3. Abdomen: Soft. Skin: Warm and dry. LABORATORY STUDIES: Urine output is 1300 mL. Note his white blood cell count went up to 77,000, hematocrit 31, hemoglobin 10. Sodium 141, potassium 4.0, chloride 104, BUN 21, creatinine 0.6. B12 was 2000. His folate was 27. ASSESSMENT AND PLAN: Apraxia, acute onset trouble with walking. Did not find any new evidence of stroke or neurologic deficits and suspect it is multifactorial. He does seem to be improving, so we will see where we are tomorrow in regards to whether we need to go to rehab for a while. He is on Plavix 75 mg at bedtime, aspirin 81 mg a day. He got his Granulex 480 mcg subcutaneous which he gets daily and his white count jumped up to 70,000. cc: MD Simone Mejias MD
--- NOTE | 2019-03-04 20:54 | HEMO/ONC CONSULTATION ---
DATE: 03/03/2019 REASON FOR CONSULTATION: Patient known to Dr. Ortiz, currently on therapy for myelodysplasia syndrome. HISTORY OF PRESENT ILLNESS: Thank you for the consultation. Mr. Pedraza is a pleasant 73-year-old gentleman, known to Dr. Ortiz, with history of MDS, currently on therapy with Dacogen, most recently treated with 5 day cycle last week on 02/24/2019, through 02/28/2019. Dr. Ortiz has been consulted to provide oncology care during hospitalization. Patient was admitted on 03/01/2019 secondary to a fall he sustained on the evening of 02/28/2019. His and neighbor helped him up from his fall and assisted him up several stairs to his family room, where he was seated in his recliner. Later at bedtime, he was able to stand, but unable to move his feet. Patient slept in a recliner over the night. His again, the following morning, was unable to get the patient to ambulate and he was brought to [facility] for further evaluation, with admission at that time. Mr. 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 He was ambulating with a weakened gait secondary to residual weakness; however, his indicates that he has continued to be able to ambulate well with minimal assistance until the evening of his fall and the morning thereafter. The patient was scheduled for an outpatient visit to [facility] today at which time he was scheduled to receive treatment with Neulasta for high risk neutropenic complications associated with his current therapy for MDS. As the patient is now hospitalized, we will plan for inpatient therapy accordingly. We will continue to follow during patient's hospitalization. PAST MEDICAL HISTORY: 1. MDS. 2. Stroke. 3. Cardiovascular disease. 4. Hypercholesterolemia. 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 PAST SURGICAL HISTORY: 1. Hip fracture repair, 2005. 2. Appendectomy. 3. Left knee surgery. FAMILY HISTORY: Mother with rheumatoid arthritis; sister with thyroid disease and non-Hodgkin lymphoma. SOCIAL HISTORY: Alcohol: None. Tobacco: Currently none. Remote history positive for cigarette smoking. Substance use: None. ALLERGIES: Naproxen. REVIEW OF SYSTEMS: Secondary to dysphasia, patient's is primary provider of information regarding review of systems. General: Family denies recent fever, chills, night sweats, weight loss or acute neurological changes. HEENT: No headaches, no vision changes, no diminished hearing. Patient wears glasses. Cardiovascular: No recent chest pain, palpitations, or syncopal episode. Respiratory: No cough, shortness of breath. GI: No abdominal pain, nausea, vomiting, constipation, or diarrhea. Appetite has been stable, good. : No pain with urination, no blood, no frequency. Musculoskeletal: Patient does report pain in the right flank region associated with fall. Neurologic: Patient does have residual right-sided weakness as well as dysphasia from previous stroke, associated with some apraxia currently. Psychological: No complaints. PHYSICAL EXAMINATION: Vital Signs: Afebrile, pulse 82, blood pressure 137/83, respiratory rate 18, oxygen saturation 97% on room air. General Appearance: Patient is awake, alert, cooperative, seen lying in hospital bed at [facility]. Patient does verbalize with dysphasia noted. He does nod and gesture appropriately. HEENT: Atraumatic, normocephalic. PERRL. EOMI. Neck: Supple. Chest: Bilateral breath sounds. Clear to auscultation. Heart: S1, S2. Regular rate and rhythm with no murmur, gallop, or rub. Abdomen: Soft, nondistended, nontender. Bowel sounds positive. Back: Right CVA tenderness noted with significant ecchymosis present, secondary to recent fall. Extremities: Lower extremities 3+/4 right/left. Patient unable to ambulate without assistance. Gait not assessed. Patient's reports he has taken several steps with assistance of 2 physical therapists earlier today. Skin: Clean, warm, dry, and intact. Scattered bruising on the right flank and upper extremities noted from recent fall. LABS: WBC 10.87, hemoglobin 11.5, hematocrit 34.8, platelet count 80,000. Sodium 140, potassium 3.8, chloride 100, CO2 26, BUN 32, creatinine 0.7, glucose 106. IMAGING: CT of the head negative. Hip and pelvic x-ray negative. Chest x-ray with rib view negative. Thoracic and lumbar spine CT: Thoracic with no acute abnormality. Lumbar with mild L1 compression fracture of indeterminate age. Patient is asymptomatic on assessment. MRI of the brain performed today; results pending. ASSESSMENT AND PLAN: 1. Myelodysplastic syndrome, currently on therapy with Dacogen, treated last week x5 doses, Sunday02/24/2019 through Sunday02/28/2019. The patient was due for outpatient Neulasta injection today for high risk neutropenic complication. We will order Granix to be given today followed by daily doses for a total of 5. We will continue to monitor counts closely, and adjust or modify doses as needed. 2. 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 Workup as noted above. Neurology consulted. Physical Therapy consulted and working with patient accordingly. 3. Cerebrovascular accident, secondary to left carotid occlusion in 2004, with residual right- sided weakness and dysphasia. Evaluation for acute changes with MRI of the brain performed earlier today. Results remain pending. Monitor results. 4. Anemia, chemotherapy induced, secondary to #1, mild. Patient remains asymptomatic. Monitor. 5. Thrombocytopenia, secondary to #1. Patient remains asymptomatic. Monitor. 6. Neutropenic complications, high risk, secondary to #1. We will order Granix today followed by daily treatment for a total of 5 doses. Monitor counts closely with further recommendations pending results. Thank you for the consultation regarding this pleasant gentleman known to Dr. Ortiz with history of myelodysplastic syndrome, currently on therapy with Dacogen. Again, we will treat with neutropenic prophylaxis beginning today, monitor his counts closely, and treat as indicated. Dictated by YESICA Hidalgo for Jw Ortiz MD cc: MD Simone Cheney MD [facility]
[2019-03-04] MEDS: LOVENOX SUBQ SCH (22:00)
[2019-03-04] MEDS: PLAVIX PO SCH (22:00)
[2019-03-05] MEDS: ASPIRIN PO SCH (08:15)
[2019-03-05 12:01] LABS: BASO# 0.46 X1000 (0.0-0.2); BASO% 0.9 % (0.0-0.8); EOS# 0.12 X1000 (0.0-0.7); EOS% 0.2 % (0.0-10.0); HEMATOCRIT 32.3 % (42.0-52.0); HEMOGLOBIN 10.5 g/dL (14.0-18.0); IMM GRAN# 2.35 X1000 (0.0-0.04); IMM GRAN% 4.5 % (0.0-0.5); LYMPH# 2.34 X1000 (1.2-3.4); LYMPH% 4.5 % (20.5-51.1); MCH 33.4 PG (27-31); MCHC 32.5 g/dL (33-37); MCV 102.9 FL (81-99); MONO# 0.76 X1000 (0.11-0.59); MONO% 1.5 % (1.7-9.3); MPV 10.9 FL (7.4-10.4); NEUT# 45.84 X1000 (1.4-6.5); NEUT% 88.4 % (42.2-75.2); PLT 74 X1000 (130-400); RBC 3.14 XMIL (4.7-6.1); RDW 15.3 % (11.5-14.5); WBC 51.87 X1000 (4.8-10.8)
[2019-03-05 12:05] LABS: BANDS 2 % (0-1); LYMPHS 6 % (21-51); MONO 2 % (1-9); SEGS 90 % (42-75)
[2019-03-05 12:06] LABS: HYPOCHROM 1+
--- NOTE | 2019-03-05 17:01 | PROGRESS NOTE ---
DATE: 03/05/2019 SUBJECTIVE: The patient is feeling much better and seems to be a little bit more mobile. He has been accepted at [facility] tomorrow. Seems to be improving a little bit every day. OBJECTIVE: Vital Signs: Temperature 98.6 degrees, pulse 96, respirations 16, blood pressure 123/65. Eyes: Pupils are equal and round. Lungs: Clear in all lung arshad. Cardiovascular: Regular rhythm and rate without murmur or S3. Abdomen: Soft. Skin: Warm and dry. LABORATORY DATA: Urine output was 1300 mL. ASSESSMENT AND PLAN: 1. Myelodysplastic syndrome, currently on therapy, Decadron. Treated last week with 5 doses 02/24/2019 through 03/05/2019. He is due for outpatient Neulasta injection. He was ordered Granix to be given a total of 5 doses and to continue to monitor counts closely. 2. Gait apraxia. Hoped making improvement. No sign of a new [employer] event. Hope to go to rehab tomorrow. 3. Cerebrovascular accident secondary to left carotid occlusion in 2004 with residual right-sided weakness and dysphagia. Evaluation including MRI did not show any extension. 4. Anemia, chemotherapy induced. 5. Thrombocytopenia secondary to myelodysplasia. 6. Neutropenia complication high risk secondary to myelodysplasia. So getting Granix. Will get a total of 5 doses. Monitor closely. Will continue Decadron. Hope to send to [facility] tomorrow. cc: MD Simone Mejias MD
[2019-03-05] MEDS: PLAVIX PO SCH (23:11)
[2019-03-05] MEDS: LOVENOX SUBQ SCH (23:11)
[2019-03-06 07:47] LABS: BASO# 0.53 X1000 (0.0-0.2); BASO% 2.8 % (0.0-0.8); EOS% 1.1 % (0.0-10.0); HEMATOCRIT 30.5 % (42.0-52.0); HEMOGLOBIN 9.7 g/dL (14.0-18.0); IMM GRAN# 0.23 X1000 (0.0-0.04); IMM GRAN% 1.2 % (0.0-0.5); LYMPH# 1.78 X1000 (1.2-3.4); LYMPH% 9.4 % (20.5-51.1); MCH 32.6 PG (27-31); MCHC 31.8 g/dL (33-37); MCV 102.3 FL (81-99); MONO# 0.55 X1000 (0.11-0.59); MONO% 2.9 % (1.7-9.3); MPV 10.4 FL (7.4-10.4); NEUT# 15.61 X1000 (1.4-6.5); NEUT% 82.6 % (42.2-75.2); PLT 74 X1000 (130-400); RBC 2.98 XMIL (4.7-6.1); RDW 15.2 % (11.5-14.5)
[2019-03-06 08:34] LABS: ANISOCYTOSIS 1+; BASO 3 % (0-1); EOS 1 % (1-10); LYMPHS 10 % (21-51); MONO 4 % (1-9); POLYCHROM 1+; SEGS 82 % (42-75)
[2019-03-06] MEDS: ASPIRIN PO SCH (10:21)
--- NOTE | 2019-03-06 10:26 | DISCHARGE SUMMARY ---
ADMISSION DATE: 03/01/2019 DISCHARGE DATE: 03/06/2019 HISTORY OF PRESENT ILLNESS: He is followed by Evita Knutson, nurse practitioner. Presented on 03/01/2019. A 73-year-old, brought into the emergency room by his and daughter after apparently, early that morning, was unable to walk. He has some left carotid occlusive disease. Had a stroke in 2004, caused right hemiparesis and aphasia. He is left-handed. Normally able to walk quite well independently but with a gait favoring his right side. His speech remains garbled and expressed from his aphasia but he is able to communicate with gestures and understands well. Afternoon before admission, he was in his den, lost his balance and fell backwards, and hit his right flank. His was able to get him to his feet and they walked up several stairs from their converted garage, in their house to his recliner. Seemed not to have any difficulty walking at that time but when it was time to go to bed, he was unable to get out of the recliner. 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 Next morning, he continue to have this apraxia. Came to the emergency room. Dr. Simone Galvan admitted him to my service. Other past medical history is significant, has myelofibrosis, myelodysplastic syndrome for which he is treated regularly with stimulating hormone. He has a history of pulmonary embolism in the past. He did have a mild leukocytosis when he came in. We did not find any evidence of infection. His hemoglobin was 12 and hematocrit was 36, and remained stable, as did his platelet count. HOSPITAL COURSE: He did show steady improvement with physical therapy. Dr. Leos evaluated. He had an MRI of the brain which showed no acute process. CT of the head without contrast and followed by Dr. Ortiz for his myelodysplastic syndrome. He is on Decadron and was treated last week with 5 doses (01/30/2019 through 02/28/2019) with outpatient Neulasta and getting Granix, I think daily doses for a total of 5. They continue to monitor counts pretty closely. His white count is actually elevated at this time. We see no advancement on his cerebrovascular accident or sign of new stroke and so we will get him to rehab today. DISCHARGE MEDICATIONS: Aspirin 81 mg a day, Plavix 75 mg a day. We will continue that. Milk of magnesia as needed. FOLLOWUP: He will follow up with Dr. Ortiz. cc: MD Simone Mejias MD MTDD
[2019-03-06 12:03] VITALS: BP 135/78
== END 2019-03-06 15:29 | DRG 886 ==
LOC: ED 11:24 → 3N 19:37
PROVIDERS: ADMIT Internal Medicine; ATTEND Emergency Medicine
CPT/HCPCS: 70450; 70553; 71111; 72125; 72128; 72131; 73502; 80048; 80053; 80061; 81001; 82607; 82746; 83721; 83735; 84439; 84443; 84484; 85025; 85610; 85730; 93005; 97110; 97116; 97162; 97530; 99284; A9270; A9579; J1446; J1447; J1650

== ENCOUNTER 2019-08-25 11:48 | Inpatient (IN) ==
[2019-08-25] MEDS ORDERED: NS 1,000 ML IV ONE (12:21)
--- NOTE | 2019-08-25 12:43 | Diag Imaging Result Doc PS360 ---
CHEST-PORTABLE - 08/25/2019 INDICATION: WEAK COMPARISON: 08/13/2019 FINDINGS: Lung volumes are even lower than prior, critically low. This is particularly true at the right lung. There is some nonspecific infiltrate or probably atelectasis in the right lung base. There is ill-defined infiltrate throughout the left midlung and lung base which is somewhat asymmetric. Heart size is grossly normal. No significant pleural effusion. IMPRESSION: Questionable infiltrate throughout the left lung suggesting bronchopneumonia or pulmonary edema. Electronically signed by Rishi Albarran 08/25/2019 12:40 PM
[2019-08-25 13:08] LABS: EOS# 0.06 X1000 (0.0-0.7); EOS% 0.1 % (0.0-10.0); HEMATOCRIT 20.2 % (42.0-52.0); HEMOGLOBIN 6.2 g/dL (14.0-18.0); MCH 34.6 PG (27-31); MCHC 30.7 g/dL (33-37); MCV 112.8 FL (81-99); MONO# 1.36 X1000 (0.11-0.59); MONO% 2.9 % (1.7-9.3); PLT 8 X1000 (130-400); RBC 1.79 XMIL (4.7-6.1); RDW 23.4 % (11.5-14.5); WBC 47.01 X1000 (4.8-10.8)
[2019-08-25 13:24] LABS: INR 2.47; PROTIME 27.5 Seconds (11.0-16.0)
[2019-08-25 13:25] LABS: PTT 34.2 Seconds (22.3-41.8)
--- NOTE | 2019-08-25 13:25 | PROVIDER DOCUMENTATION ---
This chart was entered by Svitlana Chen Scribe, acting as scribe for Garry Robison MD. HPI-General Adult - General Chief Complaint: Weakness Stated Complaint: LOW BP Time Seen by Provider: 08/25/19 12:01 Source: family () Allergies/Adverse Reactions: Patient Allergies Allergy/AdvReac Type Severity Reaction Status Date / Time naproxen sodium * Allergy Intermediate HIVES Verified 08/10/19 11:31 [From Aleve] levetiracetam [From Keppra] Allergy Unknown Verified 08/10/19 11:31 Home Medications: Home Medication List Medication Instructions Recorded Confirmed Last Taken Type Ascorbate Calcium [Meri-C] 500 mg PO BID 07/20/16 08/10/19 08/09/19 History Cyanocobalamin/Folic Acid [Ra Vit 1,000 mcg SL DAILY 07/25/18 08/10/19 08/09/19 History B-12 1,000 Mcg Lozenge] Melatonin 1 tab PO QHS 04/05/19 08/10/19 08/09/19 History Metoprolol Tartrate 1 tab PO BID 04/05/19 08/10/19 08/09/19 History Multivitamin with Minerals 2 tab PO TID 04/08/19 08/10/19 08/09/19 History [Multiple Vitamin] Aspirin 81 mg PO HS 04/16/19 08/10/19 08/09/19 History Magnesium Hydroxide [Milk of 30 ml PO HS PRN PRN 04/29/19 08/10/19 08/09/19 History Magnesia] Cyclobenzaprine [Flexeril] 10 mg PO TID #20 tab 08/10/19 Unknown Rx Hydrocodone/APAP 5 mg/325 mg 1 ea PO Q6H PRN PRN #14 tab 08/10/19 Unknown Rx [[place]-5] - History of Present Illness -Gen Adult Nature of Presenting Problems: Patient is a 74 year old male who presents with abnormal labs. states patient was seen at Dr. Ortiz this morning for blood work and was informed his platelet count and hemoglobin was low. reports patient having shortness of breath and weakness. History of MDS since 2016 and receiving [facility] for treatment. Location of Pain/Injury: reports: none Quality of Pain: reports: none Severity: reports: mild Onset/Duration: reports: gradual Timing: reports: still present, getting worse Associated Symptoms: reports: shortness of breath, weakness Similar Symptoms Previously?: Yes Recently seen or treated by another doctor?: Yes Review of Systems - Adult - REVIEW OF SYSTEMS - ADULT ROS:: ROS per family () Constitutional: reports: no symptoms reported Eyes: reports: no symptoms reported Ears, Nose, Mouth & Throat: reports: no symptoms reported Cardiovascular: reports: no symptoms reported Respiratory: reports: see HPI, shortness of breath. denies: cough, wheezing Gastrointestinal: reports: no symptoms reported Genitourinary: reports: no symptoms reported Musculoskeletal: reports: see HPI, muscle weakness. denies: back pain, neck pain Integumentary: reports: no symptoms reported Neurological: reports: no symptoms reported Psychiatric: reports: no symptoms reported Endocrine: reports: no symptoms reported Hematologic/Lymphatic: reports: no symptoms reported Allergic/Immunologic: reports: no symptoms reported All Other Systems: Reviewed and Negative Past History - Adult - PAST MEDICAL HISTORY-ADULT Review of Records: reports: Old Records Reviewed, Nursing Assessment Review, Medications Reviewed, Social history reviewed & non-contributory. Major Childhood Illnesses: reports: denies history Cardiovascular: reports: denies history Respiratory: reports: denies history Gastrointestinal: reports: denies history Obstetrical/Gynecological: reports: denies history Genitourinary: reports: denies history Musculoskeletal: reports: denies history Neurological: reports: CVA, Seizures/Epilepsy, TIA Endocrine/Immune: reports: other (MDS) Other Conditions: reports: denies history - PRIOR SURGERIES/PROCEDURES Surgical/Procedure History: reports: appendectomy, orthopedic (extremity) (right hip) - IMMUNIZATION STATUS Childhood Immunizations: See Nurse Assessment Flu Vaccine: See Nurse Assessment - FAMILY HISTORY Family History: reviewed, not pertinent - SOCIAL HISTORY Smoking: cigarettes (former) Substance Use: denies Living Situation: family Physical Exam-General - PHYSICAL EXAM-ADULT Initial Vital Signs Reviewed: Yes - CONSTITUTIONAL General Appearance: mild distress, slow to respond, other (ill in appearance). negative: obtunded - EYES Eyes: pale conjunctivae. negative: scleral icterus, sunken eyes - HEAD, EARS, NOSE, MOUTH & THROAT HENMT: normocephalic/atraumatic, other (dry mucous membranes). negative: angioedema - RESPIRATORY Respiratory: chest non-tender, lungs clear, increased rate. negative: crackles, rhonchi - CARDIOVASCULAR Cardiovascular: normal peripheral pulses, tachycardia. negative: systolic murmur - GASTROINTESTINAL (ABDOMEN) Abdominal Exam: normal bowel sounds, non tender, soft. negative: guarding, rebound - MUSCULOSKELETAL Extremity: pedal edema (bilateral). negative: deformity, erythema - SKIN Integumentary: normal turgor, warm/dry, pallor. negative: diaphoresis, rash - NEUROLOGIC Neurologic: other (unable to assess per patient's condition.) - PSYCHIATRIC Psych/Mental Status: other (slow to respond). negative: anxious, paranoid Progress - PLAN OF CARE/RESULTS Progress/Plan/Lab Results: Vital Signs - 8 hr 08/25/19 11:50 Temperature 97.2 F L Pulse Rate 84 Respiratory Rate 22 Blood Pressure 58/45 O2 Sat by Pulse Oximetry 98 Result Diagrams: 08/25/19 12:30 - EKG 1 Time of EKG reading by physician:: 12:56 EKG Read and Signed by:: Garry Robison EKG Interpretation (*Must complete 3 of following elements*): Abnormal Rate: 119 Rhythm: sinus tachycardia [place]: normal ME Interval: normal Comments: otherwise normal ECG - XRAY 1 XRAY Study: Chest Impression: See EMR Report ( CHEST-PORTABLE - 08/25/2019 INDICATION: WEAK COMPARISON: 08/13/2019 FINDINGS: Lung volumes are even lower than prior, critically low. This is particularly true at the right lung. There is some nonspecific infiltrate or probably atelectasis in the right lung base. There is ill-defined infiltrate throughout the left midlung and lung base which is somewhat asymmetric. Heart size is grossly normal. No significant pleural effusion. IMPRESSION: Questionable infiltrate throughout the left lung suggesting bronchopneumonia or pulmonary edema. Electronically signed by Rishi Albarran 08/25/2019 12:40 PM 08/25/19 1240 Interpreting Physician: Rishi Albarran MD Dictated Date/Time: 08/25/19 2776 cc: Garry Robison MD; Evita Knutson) - CONSULTS/PCP/HOSPITALIST Notification #1 *Consult/PCP/Hospitalist*: Dr. Ortiz Time Discussed: 12:21 Reason/Comments: Dr. Robison consulted with Dr. Ortiz about patient Consult Disposition: other (Dr. Ortiz states order transfusion of platelet and blood. Becdach states start with 1 unit of platelets) #2 Consult: YESICA Jones for Hospitalist Time Discussed: 12:50 Reason/Comments: Dr. Robison consulted with Karen about patient. Consult Disposition: other (Karen states she will call Dr. Rizvi) Departure - Departure Date of Disposition Decision: 08/25/19 Time of Disposition Decision: 13:10 DIAGNOSIS: MDS (myelodysplastic syndrome), Thrombocytopenia, Anemia, Weakness Disposition: ADMITTED INPATIENT 09 Certified Medical Emergency: Emergent Condition: Fair Referrals and Follow-Ups: Evita Knutson CRNP [Primary Care Provider] - - Critical Care Note This patient required my direct & personal management of CC.: No Attestation - Physician/ EHCTOR Attestation The physician spent face to face time with patient:: Yes Advanced Practice Provider documentation review:: Supervising physician onsite and consulted in the evaluation and care of this patient. The physician did have a face to face encounter with the patient. This chart was documented by the indicated scribe, (Svitlana Chen Scribe) and accurately reflects the services I performed and decisions made by me, Garry Robison MD, as attested by the provider's signature.
[2019-08-25 13:38] LABS: BANDS 19 % (0-1); EOS 1 % (1-10); LYMPHS 6 % (21-51); MONO 2 % (1-9); NRBC 3 % (0-0); SEGS 62 % (42-75)
[2019-08-25 13:39] LABS: ANISOCYTOSIS 2+
--- NOTE | 2019-08-25 13:45 | HISTORY AND PHYSICAL ---
HISTORY OF PRESENT ILLNESS: This is a 74-year-old who is a patient of Dr. Ortiz, is not my patient. This is a 74-year-old who has had weakness and had been seen by Dr. Ortiz, and found his platelet count was low and anemia. He lives with his . PAST MEDICAL HISTORY: He had a left carotid occlusive stroke in 2004 that caused right hemiparesis and aphasia. I think he has myelodysplastic syndrome, history of cardiovascular disease. PAST SURGICAL HISTORY: Had a hip fracture in 2006, history of appendectomy, and left knee surgery. ALLERGIES: To naproxen. FAMILY HISTORY: Mother with rheumatoid arthritis. Has a sister with thyroid disease. SOCIAL HISTORY: , lives with his , two adult daughters. 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 No history of tobacco. Very remote history of smoking. REVIEW OF SYSTEMS: Just generally weak and puny. Poor appetite, has not eaten much in 6 days. HEENT: No change in vision or hearing acuity reported. No neck pain or adenopathy. Respiratory: No increased work of breathing or dyspnea. Cardiovascular: No chest pain or tachy palpitations. GI and : They have not reported any change in bowels, gross hematuria, or dysuria. Musculoskeletal and Neurologic: No focal complaints. Endocrinologic and Hematologic: No significant history. PHYSICAL EXAMINATION: GENERAL: He is awake and alert. He is weak and very puny. No focal weakness. VITAL SIGNS: Temperature 97.2 degrees, pulse 84, respirations 22, blood pressure 158/45. HEENT: Mucous membranes are dry. CVP is less than 6 cm from right atrium. LYMPHATICS: No cervical, supraclavicular, axillary, or femoral adenopathy. LUNGS: Clear in all lung arshad. CARDIOVASCULAR EXAMINATION: Regular rhythm and rate without murmur or S3. ABDOMEN: Soft, nondistended, nontender. Positive bowel sounds. No hepatosplenomegaly. WEIGHT AND HEIGHT: Weight 181 pounds. Height 6 feet. SKIN: Warm and dry. LABORATORY DATA: White count 47,010, hematocrit 20, hemoglobin 6.2, platelet count 8000. Chest x- ray shows questionable infiltrate throughout the left lung, suggesting bronchopneumonia or pulmonary edema. ASSESSMENT AND PLAN: 1. Myelodysplasia, myelodysplastic syndrome. He has an elevated white count. I do not have the differential in yet so I do not know if this is predominantly neutrophils or lymphocytes. His hemoglobin is low, MCV is 112, so we will give him 2 units of packed red blood cells. We will give 1 unit of random donor platelets. We will give him some normal saline, run it at 85 mL an hour. He appears to be volume contracted and his blood pressure is low. 2. Elevated white count. Could not rule out that he has an early pneumonia on the chest x-ray. We will put him on ceftriaxone 1 g now and then 1 g every 24 hours. Repeat another chest x- ray in the morning after hydration. We will check his T4, TSH, B12, and folate. We will check a morning cortisol level. Make sure that Dr. Ortiz is consulted as they had referred him over here. 3. History of cardiovascular disease in the past. Aware. REVIEW OF MEDICATIONS: Looking at his list of medications, he is on melatonin one at bedtime. He is on metoprolol. I do not know the dose, twice a day, which we are going to hold for now as his blood pressure is low. He is getting aspirin 81 mg a day, Meri-C or ascorbic acid with vitamin C 500 mg b.i.d., cyanocobalamin which is vitamin B 12,000 mcg lozenge sublingual daily. cc: Denilson Rizvi MD MTDD
[2019-08-25 13:47] LABS: ALB/GLOB RATIO 1.6; ALBUMIN 3.6 g/dL (3.5-5.0); CALCIUM 8.6 mg/dL (8.8-10.2); CREATININE 1.6 mg/dL (0.7-1.2); MAGNESIUM 2.4 mg/dL (1.5-2.7); POTASSIUM 5.6 mmol/L (3.5-5.1); TOTAL BILIRUBIN 0.98 mg/dL (0.20-1.00); TOTAL PROTEIN 5.8 g/dL (6.3-8.3)
--- NOTE | 2019-08-25 15:05 | EKG Report ---
Test Performed on : 08/25/2019 12:56:01 PM Test Reason : WEAK Blood Pressure : / mmHG Vent. Rate : 119 BPM Atrial Rate : 119 BPM P-R Int : 128 ms QRS Dur : 074 ms QT Int : 336 ms P-R-T Axes : 006 -04 046 degrees QTc Int : 472 ms Sinus tachycardia. Otherwise normal ECG When compared with ECG of 05-APR-2019 10:01, No significant change was found Unconfirmed Result
[2019-08-25] MEDS: NS 1,000 ML IV SCH (15:14)
[2019-08-26] MEDS: NS 1,000 ML IV SCH (06:30)
[2019-08-26 06:51] LABS: EOS# 0.05 X1000 (0.0-0.7); EOS% 0.4 % (0.0-10.0); HEMATOCRIT 22.3 % (42.0-52.0); HEMOGLOBIN 7.5 g/dL (14.0-18.0); LYMPH% 33.4 % (20.5-51.1); MCHC 33.6 g/dL (33-37); MCV 104.2 FL (81-99); MONO# 0.62 X1000 (0.11-0.59); MONO% 4.5 % (1.7-9.3); PLT 43 X1000 (130-400); RBC 2.14 XMIL (4.7-6.1); RDW 19.2 % (11.5-14.5); WBC 13.78 X1000 (4.8-10.8)
[2019-08-26] MEDS ORDERED: TYLENOL PO PRN (06:53)
[2019-08-26 07:00] LABS: ALB/GLOB RATIO 1.2; ALBUMIN 2.8 g/dL (3.5-5.0); CALCIUM 8.5 mg/dL (8.8-10.2); CREATININE 1.8 mg/dL (0.7-1.2); MAGNESIUM 2.1 mg/dL (1.5-2.7); POTASSIUM 4.5 mmol/L (3.5-5.1); TOTAL BILIRUBIN 1.24 mg/dL (0.20-1.00); TOTAL PROTEIN 5.1 g/dL (6.3-8.3)
[2019-08-26] MEDS ORDERED: VANCOMYCIN IV PER PHARMACY MISC SCH (07:00)
[2019-08-26] MEDS: MAXIPIME 1 GM in NS 50 ML IV SCH ×2 (07:13→20:45)
[2019-08-26 07:30] LABS: BANDS 14 % (0-1); LYMPHS 18 % (21-51); MONO 4 % (1-9); SEGS 60 % (42-75)
--- NOTE | 2019-08-26 07:49 | EKG Report ---
Test Performed on : 08/26/2019 06:49:50 AM Test Reason : tachycardia Blood Pressure : / mmHG Vent. Rate : 126 BPM Atrial Rate : 126 BPM P-R Int : 130 ms QRS Dur : 082 ms QT Int : 288 ms P-R-T Axes : 034 -10 101 degrees QTc Int : 417 ms Sinus tachycardia. T wave abnormality, consider lateral ischemia Abnormal ECG When compared with ECG of 25-AUG-2019 12:56, (Unconfirmed) Nonspecific T wave abnormality no longer evident in Anterior leads T wave inversion now evident in Lateral leads Confirmed by Lucas Ramirez MD ([id number]) on 08/27/2019 7:30:44 AM
[2019-08-26] MEDS ORDERED: VANCOMYCIN 2,000 MG in NS 500 ML IV ONE ×2 (08:00→21:45)
[2019-08-26 08:02] LABS: INR 1.94; PROTIME 22.6 Seconds (11.0-16.0)
--- NOTE | 2019-08-26 09:27 | Diag Imaging Result Doc PS360 ---
CT THORAX W/O CONTRAST - 08/26/2019 INDICATION: pneumonia COMPARISON: None FINDINGS: There are small bilateral pleural effusions. Heart size is borderline enlarged. No adenopathy. There is dense coronary artery disease worst at the left anterior descending coronary artery. There are some calcified gallstones in the gallbladder. No gallbladder inflammation. Otherwise upper abdominal images are unremarkable. There is some hazy groundglass interstitial infiltrate bilaterally left greater than right. There is also intralobular pulmonary septal thickening compatible with interstitial pulmonary edema. This is most notable in the lung apices. The airways are clear. There is significant right hemidiaphragm elevation. There are moderate degenerative changes of the spine. No acute or suspicious bony lesion. IMPRESSION: 1. Cardiomegaly, bilateral pulmonary edema left greater than right, small bilateral pleural effusions. 2. Stable right hemidiaphragm elevation. 3. Gallstones in the gallbladder. This exam was performed using automated exposure control, adjustment of mA or kV according to patient size, and/or use of iterative reconstruction technique Electronically signed by Rishi Albarran 08/26/2019 9:25 AM
[2019-08-26] MEDS: XOPENEX NEB INH SCH ×3 (12:00→21:55)
[2019-08-26 12:15] LABS: URINE SOURCE CLEAN CATCH
[2019-08-26 12:21] LABS: BILIRUBIN URINE NEGATIVE (NEGATIVE); BLOOD URINE NEGATIVE (NEGATIVE); COLOR YELLOW; GLUCOSE URINE NEGATIVE (NEGATIVE); KETONE URINE TRACE mg/dL (NEGATIVE); LEUKOCYTES URINE NEGATIVE (NEGATIVE); NITRITE URINE NEGATIVE (NEGATIVE); PROTEIN URINE TRACE mg/dL (NEGATIVE); SP GRAVITY URINE 1.017; TURBIDITY URINE HAZY (CLEAR); UROBILINOGEN URINE NORMAL (NORMAL)
[2019-08-26 12:31] LABS: UR EPITHELIAL CELLS <10 /HPF (<10); URINE BACTERIA NEGATIVE /HPF; URINE CRYSTALS NONE SEEN; URINE RBC <10 /HPF (<10); URINE WBC <10 /HPF (<10)
[2019-08-26 13:05] LABS: UR CREAT RANDOM 74.6 mg/dL (14-26); UR PROT RANDOM 19.8 mg/dL
--- NOTE | 2019-08-26 13:24 | Diag Imaging Result Doc PS360 ---
EXAM: US RENAL 2 (RETROPER) COMPLETE 08/26/2019 HISTORY: Acute kidney injury TECHNIQUE: Renal ultrasound COMMENT: The kidneys are without evidence of hydronephrosis or mass. The urinary bladder is not distended. The right kidney is 10.2 x 5.2 x 5.4 cm. The left kidney is 11.5 x 5.3 x 5.2 cm. IMPRESSION: No evidence of obstructive uropathy. Electronically signed by Beto Olivera 08/26/2019 1:22 PM
[2019-08-26 15:08] LABS: ALBUMIN 2.9 g/dL (3.5-5.0); CALCIUM 9.1 mg/dL (8.8-10.2); CREATININE 1.5 mg/dL (0.7-1.2); PHOSPHORUS 3.1 mg/dL (2.7-4.5)
[2019-08-26] MEDS ORDERED: MORPHINE IR PO PRN (16:15)
[2019-08-26] MEDS ORDERED: LASIX PO ONE (16:20)
[2019-08-26] MEDS ORDERED: LOPRESSOR IV ONE (16:34)
--- NOTE | 2019-08-26 16:48 | EKG Report ---
Test Performed on : 08/26/2019 4:32:59 PM Test Reason : tachycardia Blood Pressure : / mmHG Vent. Rate : 138 BPM Atrial Rate : 138 BPM P-R Int : 156 ms QRS Dur : 082 ms QT Int : 262 ms P-R-T Axes : 040 -14 116 degrees QTc Int : [address] & T wave abnormality, consider lateral ischemia Abnormal ECG When compared with ECG of 26-AUG-2019 06:49, (Unconfirmed) No significant change was found Confirmed by James MENEZES, Lucas Allison ([id number]) on 08/27/2019 7:32:12 AM
--- NOTE | 2019-08-26 18:30 | HEMO/ONC CONSULTATION ---
DATE: 08/26/2019 ADMITTING PHYSICIAN: DR. Romeo Rizvi. REQUESTING PHYSICIAN: DR. Romeo Rizvi. We appreciate this consult. CHIEF COMPLAINT: Myelodysplastic syndrome. HISTORY OF PRESENT ILLNESS: Mr. Pedraaz is a very pleasant 74-year-old male well known to Dr. Ortiz with a history of myelodysplastic syndrome. The patient has been maintained on Vidaza and is seen frequently in clinic for review of CBC. The patient has experienced profound thrombocytopenia and anemia and has received several transfusions of packed red blood cells and platelets in the recent past. The patient has recently been experiencing significant body aches on Vidaza and after Neulasta injection. The patient presented to [facility] the day of admission secondary to significant hypotension with a systolic blood pressure in the 70s as well as profound thrombocytopenia with a platelet count of 6000 and anemia with a hemoglobin of 6.2. Additionally the patient had multiple bruises covering his body with petechiae and patient was admitted to [facility] for evaluation and treatment. 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 PAST SURGICAL HISTORY: As in HPI. PAST SURGICAL HISTORY: 1. Hip fracture in 2005 with repair. 2. Appendectomy. 3. Left knee surgery. FAMILY HISTORY: Negative for any hematologic or oncologic disease . SOCIAL HISTORY: The patient does not use tobacco, alcohol or illicit drugs. MEDICATIONS ON ADMISSION: TriVita, B12 and B6 with folic acid, oregano oil, Meri C with bioflavonoids, metoprolol, morphine immediate release, Levaquin, Relistor, cyclobenzaprine, laxative plus stool softener. ALLERGIES: To Aleve REVIEW OF SYSTEMS: A 14 point review of system was attempted and is unable to be obtained as the patient is aphasic. PHYSICAL EXAMINATION: General: Mr. Pedraza is a pleasant 74-year-old male lying supine in bed with multiple bruises, the patient appears quite ill at this time. Vital Signs: Temperature 98.3, blood pressure 116/57, heart rate 139 and respirations are 24, O2 saturations 95% on room air. HEENT: Normocephalic, atraumatic. Mucous membranes are pale and dry, sclerae is anicteric, extraocular movements intact. Neck: Supple. Lungs: Clear to auscultation bilaterally. Chest expansion is equal bilaterally. CV: S1, S2 is heard. The patient is tachycardic. Abdomen: Soft, nondistended, nontender, bowel sounds positive all quadrants no rebound, guarding noted. Extremities: Without clubbing, cyanosis or edema. Dermatologic: Patient does have petechiae to his bilateral upper extremities with bruises on all extremities. Neurologic: The patient is awake, he is completely aphasic. He does have dense right hemiparesis . LABORATORY DATA: Hemoglobin 7.5, hematocrit 22.3, white blood cell count is 13.78, platelets 43,000. PT 22.6, INR 1.94, sodium 141, potassium 4.0, chloride 103, CO2 is 22, BUN 59, creatinine 1.5 and glucose is 166, calcium 9.1, phosphorus 3.1, magnesium 2.1, bilirubin is 1.24, AST 211, ALT 365, alkaline phosphatase 125. TSH is 0.65. Urinalysis is negative for UTI. IMAGING STUDIES: Chest CT reveals cardiomegaly with bilateral pulmonary edema left greater than right and small bilateral pleural effusions and the patient does have a stable right hemidiaphragm elevation and gallstones are seen in the gallbladder. ASSESSMENT AND PLAN: 1. Myelodysplastic syndrome. The patient has had a good response to Vidaza. He has been monitored in clinic frequently secondary to thrombocytopenia and anemia. We will hold treatment at this time until the patient's acute illness improves. 2. Profound thrombocytopenia with a platelet count of 6000, patient is status post transfusion of platelets, he does have significant bruising covering his body. We will continue monitor platelet count and keep platelet count greater than 20,000. 3. Profound anemia, on admission the patient's hemoglobin was 6.2, the patient is status post 2 units packed red blood cells, hemoglobin is currently 7.5. We will continue to monitor CBC and keep hemoglobin greater than 8.0. 4. Leukocytosis. The patient has received Neulasta. Chest x-ray with questionable early pneumonia, he is currently on ceftriaxone prophylactically. We will continue to monitor. 5. We will follow along with you and make further recommendations pending outcomes. Above reflects the history exam assessment plan of Dr. Ortiz. Dictated by YESICA Marte for Jw Ortiz MD cc: YESICA Marte MD [facility]
[2019-08-26] MEDS: LOPRESSOR PO SCH (20:45)
[2019-08-26] MEDS: MEGACE LIQUID PO SCH (20:45)
[2019-08-27] MEDS: XOPENEX NEB INH SCH ×4 (03:31→21:10)
[2019-08-27 07:34] LABS: INR 1.82; PROTIME 21.4 Seconds (11.0-16.0)
--- NOTE | 2019-08-27 07:38 | Diag Imaging Result Doc PS360 ---
EXAM: CHEST-1 VIEW HISTORY: pulmonary edema TECHNIQUE: Single view COMPARISON: 08/25/2019 FINDINGS: Poor inspiratory effort. Mild pulmonary edema and infiltrates remain. Heart is borderline mildly prominent. Small bilateral effusions. IMPRESSION: No interval improvement. Electronically signed by Christian Martinez 08/27/2019 7:35 AM
[2019-08-27 07:44] LABS: AGAP 16; ALB/GLOB RATIO 1.2; ALBUMIN 2.7 g/dL (3.5-5.0); ALKALINE PHOSPHATASE 118 U/L (32-122); BUN 53 mg/dL (8-22); CALCIUM 8.3 mg/dL (8.8-10.2); CHLORIDE 106 mmol/L (98-107); COSMO 306; CREATININE 1.1 mg/dL (0.7-1.2); ESTIMATED GFR > 60; GLUCOSE 147 mg/dL (70-104); GOT 70 U/L (10-34); GPT 262 U/L (10-44); SODIUM 145 mmol/L (136-145); TCO2 23 mmol/L (25-35); TOTAL BILIRUBIN 0.76 mg/dL (0.20-1.00); TOTAL PROTEIN 4.9 g/dL (6.3-8.3)
[2019-08-27] MEDS: MAXIPIME 1 GM in NS 50 ML IV SCH ×2 (09:01)
[2019-08-27] MEDS: LOPRESSOR PO SCH ×2 (09:02→22:24)
[2019-08-27] MEDS: LASIX IV SCH (09:02)
[2019-08-27] MEDS: MEGACE LIQUID PO SCH ×2 (09:02→22:24)
[2019-08-27] MEDS ORDERED: POTASSIUM CHLORIDE 60 MEQ in NS 500 ML IV ONE (09:18)
[2019-08-27] MEDS ORDERED: KLOR-CON PO ONE (09:32)
[2019-08-27 10:09] LABS: BASO# 0.23 X1000 (0.0-0.2); BASO% 2.2 % (0.0-0.8); EOS# 0.06 X1000 (0.0-0.7); EOS% 0.6 % (0.0-10.0); HEMATOCRIT 19.8 % (42.0-52.0); HEMOGLOBIN 6.5 g/dL (14.0-18.0); IMM GRAN# 0.04 X1000 (0.0-0.04); IMM GRAN% 0.4 % (0.0-0.5); LYMPH# 4.54 X1000 (1.2-3.4); LYMPH% 43.3 % (20.5-51.1); MCH 33.7 PG (27-31); MCHC 32.8 g/dL (33-37); MCV 102.6 FL (81-99); MONO# 0.24 X1000 (0.11-0.59); MONO% 2.3 % (1.7-9.3); MPV 9.3 FL (7.4-10.4); NEUT# 5.38 X1000 (1.4-6.5); NEUT% 51.2 % (42.2-75.2); PLT 25 X1000 (130-400); RBC 1.93 XMIL (4.7-6.1); RDW 19.1 % (11.5-14.5); WBC 10.49 X1000 (4.8-10.8)
[2019-08-27 10:32] LABS: IRON SATURATION 95 %; TIBC 122 ug/dL; TOTAL IRON 116 ug/dL (53-167)
[2019-08-27] MEDS ORDERED: NS 500 ML IV ONE (10:37)
[2019-08-27 11:23] LABS: UNBOUND IRON 20 ug/dL (112-346)
[2019-08-27 11:43] LABS: BANDS 8 % (0-1); EOS 2 % (1-10); LYMPHS 22 % (21-51); SEGS 62 % (42-75)
[2019-08-27 11:44] LABS: ANISOCYTOSIS 1+; HYPOCHROM 1+; POIKILOCYTOSIS 1+
--- NOTE | 2019-08-27 13:18 | INFECTIOUS DISEASE CONSULT REP ---
DATE: 08/27/2019 CONCLUSIONS: The patient has possible pneumonia and/or pulmonary venous congestion. The patient has 1 of 2 blood cultures growing a coagulase-negative Staph. This is a contaminant, and does not require treatment. The patient does have a low IgG level at 605. I do not think that this amount of decrease is clinically significant. The patient's IgA level was normal at 155. RECOMMENDATIONS: I agree with treating the patient with antibiotics pending the results of some studies to determine if the patient does indeed have pneumonia. As I mentioned above, the patient has 1 of 2 blood cultures growing coag-negative Staph. This is a contaminant, and therefore it does not require treatment with antibiotics. I am going to go ahead and stop the patient's vancomycin because he already has tinnitus, and I am going to discontinue cefepime. I am going to put the patient on ceftaroline. Some of the side effects of the antibiotic including rash and diarrhea have been explained to the patient who agrees with treatment. DISCUSSION: The information I have on this patient is obtained from the patient's and from the computer. The patient developed hypotension, and he was brought to the hospital. His CT scan of the chest shows bilateral pulmonary edema and pleural effusions. The patient's chest x-ray shows pulmonary edema and infiltrates. 1/2 blood cultures is growing out coagulase-negative Staph[place] [address], hemoglobin 6.5, and platelet count 25,000. Creatinine is 1.1. GFR is greater than 60. ALT is 262. Urinalysis shows no white cells or bacteria. IgG is 605, and IgA is 155. As mentioned above, the patient's IgG level of 605. I do not think it is low enough to merit giving the patient infusions of IVIG. PAST MEDICAL HISTORY/REVIEW OF SYSTEMS: Neurologic: The patient has a right- sided paralysis and an expressive aphasia. He also has a problem with constipation. He is able to pass his urine without difficulty. He has not been complaining of any joint pain or muscle aching. He has not had any rashes. PAST MEDICAL HISTORY: Positive for a stroke that caused the patient to have right hemiparesis and aphasia. He also has a myelodysplastic syndrome. He has a history of cardiovascular disease. PAST SURGICAL HISTORY: Positive for a hip fracture in 2005, an appendectomy, and left knee surgery. SOCIAL HISTORY: The patient is . He has dogs as pets where he lives. ALLERGIES: To naproxen and levetiracetam. HOME MEDICATIONS: 1. Aspirin. 2. Keflex. 3. Vitamin B12. 4. Metoprolol. 5. Morphine. 6. Senna-docusate. FAMILY HISTORY: Positive for rheumatoid arthritis and thyroid disease. SOCIAL HISTORY: Patient is . He is retired from working at [employer]. He smoked cigarettes very many years ago, and nothing recently. He does not drink alcoholic beverages or abuse drugs. He lives in the city [facility]. PHYSICAL EXAMINATION: Vital Signs: Temperature 98.8 degrees, pulse 102, respirations 15, and blood pressure 133/60. General: This is a chronically ill-appearing elderly male. He is in no acute distress. Head, eyes, ears, nose, and throat: He can hear my spoken words. There is no drainage from his nose or ears. He does not have any white patches in his mouth. Neck: No meningismus. Lungs: Clear to auscultation. Cardiovascular: Heart rate is regular and rapid. Abdomen: Soft and nontender. Neurologic: The patient has an expressive aphasia and a right hemiparesis. Integument: No rash noted. Thank you for the consult. cc: Hoang Cervantes MD MTDD
[2019-08-27] MEDS: TEFLARO 600 MG in NS 250 ML IV SCH (14:24)
[2019-08-27] MEDS ORDERED: NS 500 ML ONE (17:30)
--- NOTE | 2019-08-27 20:08 | PROGRESS NOTE ---
DATE: 08/27/2019 SUBJECTIVE: The patient is resting comfortably. He had a rough night and he is very weak and not eating. OBJECTIVE: Vital Signs: T-max 99.5 degrees, blood pressure 126/54, heart rate 115, respirations 20, O2 saturation 96% on 2 L nasal cannula. Intake is 0, output 1.3 L. General: This is a chronically ill-appearing elderly male lying in bed in no acute distress. Heart: S1, S2 normal. Tachycardic. Lungs: Coarse breath sounds with diminished breath sounds at the bases. Abdomen: Positive bowel sounds. Soft, nontender, nondistended. Extremities: 1+ edema in the right leg. Trace edema in the left leg. Neurologic: The patient is lethargic, but will awaken when his name is called. LABS: White blood cell count 10, hemoglobin 6.5, hematocrit 19, platelets 25,000. Sodium 145, potassium 3, chloride 106, CO2 23, BUN 53, creatinine 1.1 glucose 147, albumin 2.7, AST 70, ALT 262, alkaline phosphatase 118. Chest x-ray shows no improvement in the infiltrates. ASSESSMENT AND PLAN: 1. Acute hypoxemic respiratory failure. Likely secondary to pneumonia and pulmonary edema. 2. Pneumonia. The procalcitonin was noted to be elevated at 7.6. Continue with antibiotic therapy as directed by Dr. Cervantes. 3. Acute pulmonary edema. Continue with diuretic therapy. 4. Severe protein-calorie malnutrition. The patient is not eating and has no appetite. We will start the patient on Clinimix at this time. 5. Hypokalemia. We will replace the patient's potassium. 6. Myelodysplastic syndrome. The patient appears to be transfusion dependent now. He will receive 1 unit of packed red blood cells today. We will continue to monitor the platelet count. Oncology is following. 7. Acute kidney injury. Resolving. 8. Immunoglobulin deficiency. Aware. 9. Disposition. I had a discussion with the patient and his . The patient has decided to be made a Do Not Resuscitate level 1. We will also consult with Palliative Care for goals of care. cc: Hina Landa MD
[2019-08-27] MEDS ORDERED: VANCOMYCIN 1,250 MG in NS 250 ML IV SCH (22:00)
[2019-08-27] MEDS: CLINIMIX E 4.25%-5% SOLUTION 1,000 ML IV SCH (22:19)
[2019-08-28] MEDS: TEFLARO 600 MG in NS 250 ML IV SCH ×2 (01:30→12:44)
[2019-08-28] MEDS: XOPENEX NEB INH SCH ×4 (03:31→23:04)
--- NOTE | 2019-08-28 06:29 | Extremity Venous Study ---
PROCEDURE NAME: Venous U/S Right Arm - 08/27/2019 REFERRING PHYSICIAN: Dr. Landa. READING PHYSICIAN: Dr. Casimiro Alberts. TREE THINNER: Sixto. INDICATION: Right arm swelling. FINDINGS: The deep and superficial veins of the right upper extremity were imaged throughout their course. They are compressible, patent and without thrombus. INTERPRETATION: No DVT or SVT of the right upper extremity. cc: MD Hina No MD
--- NOTE | 2019-08-28 06:40 | Extremity Venous Study ---
PROCEDURE NAME: Venous U/S Right Leg - 08/27/2019 REFERRING PHYSICIAN: Dr. Landa. READING PHYSICIAN: Dr. Casimiro Alberts. DRAWBENCH OPERATOR: Sixto. INDICATION: Right leg swelling. FINDINGS: The deep and superficial veins of the right lower extremity were imaged throughout their course. They are compressible, patent and without thrombus. INTERPRETATION: No DVT or SVT of the right lower extremity. cc: MD Hina No MD
[2019-08-28 07:35] LABS: INR 1.72; PROTIME 20.5 Seconds (11.0-16.0)
[2019-08-28 07:37] LABS: BASO# 0.35 X1000 (0.0-0.2); BASO% 2.4 % (0.0-0.8); HEMATOCRIT 21.4 % (42.0-52.0); MCH 32.7 PG (27-31); MCHC 32.7 g/dL (33-37); MPV 9.5 FL (7.4-10.4); PLT 15 X1000 (130-400); RBC 2.14 XMIL (4.7-6.1); RDW 20.9 % (11.5-14.5); WBC 14.43 X1000 (4.8-10.8)
--- NOTE | 2019-08-28 07:47 | Diag Imaging Result Doc PS360 ---
EXAM: CHEST-1 VIEW INDICATION: dyspnea/pneumonia TECHNIQUE: One view COMPARISON: 08/27/2019 FINDINGS: Lung volumes remain low. Bilateral infiltrates with a basilar predominance suggesting pulmonary edema +/- pneumonia is again identified. There are approximately stable. There is trace fluid in the minor fissure on the right. No new consolidation is identified. Cardiac silhouette is stable. IMPRESSION: Essentially stable chest. Electronically signed by Patel Hamilton 08/28/2019 7:45 AM
[2019-08-28 07:50] LABS: AGAP 11; ALBUMIN 2.5 g/dL (3.5-5.0); BUN 42 mg/dL (8-22); CALCIUM 8.7 mg/dL (8.8-10.2); CHLORIDE 109 mmol/L (98-107); COSMO 300; CREATININE 0.9 mg/dL (0.7-1.2); ESTIMATED GFR > 60; GLUCOSE 153 mg/dL (70-104); PHOSPHORUS 2.2 mg/dL (2.7-4.5); SODIUM 144 mmol/L (136-145); TCO2 24 mmol/L (25-35)
[2019-08-28 08:42] LABS: BANDS 2 % (0-1); LYMPHS 38 % (21-51); SEGS 56 % (42-75)
[2019-08-28] MEDS ORDERED: POTASSIUM PHOSPHATE 50 MMOL in NS 250 ML IV ONE (08:49)
[2019-08-28] MEDS ORDERED: NS 500 ML IV ONE (08:50)
[2019-08-28] MEDS: ZOFRAN IV PRN (10:10)
--- NOTE | 2019-08-28 10:16 | EKG Report ---
Test Performed on : 08/28/2019 10:00:11 AM Test Reason : tachycardia Blood Pressure : / mmHG Vent. Rate : 116 BPM Atrial Rate : 116 BPM P-R Int : 146 ms QRS Dur : 086 ms QT Int : 318 ms P-R-T Axes : 057 -22 052 degrees QTc Int : 442 ms Sinus tachycardia. Minimal voltage criteria for LVH, may be normal variant Nonspecific ST abnormality Abnormal ECG When compared with ECG of 26-AUG-2019 16:32, T wave inversion no longer evident in Lateral leads Confirmed by James MENEZES, Lucas Allison ([id number]) on 08/28/2019 2:31:26 PM
--- NOTE | 2019-08-28 11:31 | INFECTIOUS DISEASE PROGRESS NO ---
DATE: 08/28/2019 PRESENT ILLNESS: The patient has a bilateral pneumonia. The patient has 1 out of 2 blood cultures growing a coagulase-negative Staph. This is a contaminant and does not require treatment. MEDICATIONS: The patient is receiving ceftaroline 600 mg IV every 12 hours. The patient's IgG level of 605 is not low enough that would be benefitted by IVIG, and for that reason, I am not going to give the patient a dose of IVIG. PHYSICAL EXAMINATION: Vital Signs: Temperature is 98 degrees, pulse 128, respirations 18, blood pressure 142/62. General: This is an ill-appearing, elderly male. He is in no acute distress. HEENT: He can hear my spoken words and see near objects. Neck: No pain with movement. Lungs: Clear to auscultation. Cardiovascular: Heart rate is regular. Abdomen: Soft and nontender. Neurologic: The patient has a right hemiparesis and an expressive aphasia. Integument: No rash noted. IMAGING AND LABORATORY DATA: Chest x-ray shows bibasilar infiltrates. As mentioned above, 1 out of 2 blood cultures are positive for coagulase-negative Staph. This is a contaminant and does not need treatment. Also as mentioned above, the patient has a small immunoglobulin deficiency with his IgG being 605. I do not think that this requires IVIG infusions. The patient's procalcitonin came back at 7.6. This translates that the patient very likely does have pneumonia. CBC shows a white count of 14,430, hemoglobin 7, platelet count 15,000. Creatinine is 0.9. GFR is greater than 60. ASSESSMENT AND PLAN: The patient has a bilateral pneumonia. My plan is to continue ceftaroline. COMORBIDITIES: The patient has had a stroke, which resulted in right hemiparesis and expressive aphasia. He also has a myelodysplastic syndrome. The patient also is elderly. cc: Hoang Cervantes MD
[2019-08-28] MEDS: MEGACE LIQUID PO SCH ×2 (11:52→20:39)
[2019-08-28] MEDS: LOPRESSOR PO SCH ×2 (11:53→20:40)
[2019-08-28] MEDS: LASIX IV SCH (11:53)
[2019-08-28 12:11] LABS: HEPATITIS PROFILE ACUTE SEE COMMENTS
[2019-08-28] MEDS: CULTURELLE PO SCH ×2 (12:16→20:40)
--- NOTE | 2019-08-28 16:14 | PROGRESS NOTE ---
DATE: 08/28/2019 SUBJECTIVE: The patient is resting comfortably in bed. He states that he feels about the same. He reports that he has no appetite. OBJECTIVE: Vital Signs: Temperature 98.3 degrees, blood pressure 142/62, heart rate 128, respirations 18, O2 saturation 98% on 2 L nasal cannula. General: This is a chronically ill- appearing elderly male, lying in bed in no acute distress. Heart: S1, S2. Normal. Tachycardic. Lungs: Equal air entry bilaterally. No wheezing. No rales. Abdomen: Positive bowel sounds. Soft, nontender, nondistended. Extremities: No edema, no cyanosis. Neurologic: The patient is alert and oriented x3. The patient does have right hemiplegia from a prior stroke. LABS: White blood cell count 14, hemoglobin 7, hematocrit 21, platelets 15. Sodium 144, potassium 3, chloride 109, CO2 24. BUN 42, creatinine 0.9, phosphorus 2.2, magnesium 1.9. INR 1.7. X-RAYS: Chest x-ray shows bilateral infiltrates with pulmonary edema and pneumonia. ASSESSMENT AND PLAN: 1. Acute hypoxemic respiratory failure. Multifactorial. We will continue to treat the underlying issues. 2. Bilateral lobe pneumonia. Continue with antibiotic therapy as directed by Dr. Cervantes. 3. Acute pulmonary edema. Continue with diuretic therapy. 4. Severe protein calorie malnutrition. Continue on Clinimix. We will also add Ensure with each meal. 5. Hypokalemia. Will replace the patient's potassium. 6. Myelodysplastic syndrome. The patient will require a platelet transfusion today. Oncology is following. The patient appears to be transfusion-dependent at this time. 7. Immunoglobulin deficiency. Normal. 8. Disposition: I updated the patient and his on the overall treatment plan. The patient is currently a do not resuscitate level 1. cc: Hina Landa MD
[2019-08-28 17:37] LABS: PHOSPHORUS 4.7 mg/dL (2.7-4.5); POTASSIUM 3.5 mmol/L (3.5-5.1)
[2019-08-28] MEDS ORDERED: KLOR-CON PO ONE (18:02)
[2019-08-28] MEDS: CLINIMIX E 4.25%-5% SOLUTION 1,000 ML IV SCH (20:34)
[2019-08-29] MEDS: NS 500 ML IV SCH ×2 (01:22→08:59)
[2019-08-29] MEDS: TEFLARO 600 MG in NS 250 ML IV SCH ×2 (01:34→17:10)
[2019-08-29] MEDS: CLINIMIX E 4.25%-5% SOLUTION 1,000 ML IV SCH ×2 (03:03→11:24)
[2019-08-29] MEDS: XOPENEX NEB INH SCH ×4 (03:51→22:56)
[2019-08-29] MEDS ORDERED: CALMOSEPTINE OINTMENT TOP PRN (04:51)
[2019-08-29 07:06] LABS: BASO# 0.18 X1000 (0.0-0.2); EOS# 0.21 X1000 (0.0-0.7); EOS% 1.1 % (0.0-10.0); HEMATOCRIT 21.2 % (42.0-52.0); HEMOGLOBIN 6.7 g/dL (14.0-18.0); IMM GRAN# 0.08 X1000 (0.0-0.04); IMM GRAN% 0.4 % (0.0-0.5); LYMPH# 9.85 X1000 (1.2-3.4); LYMPH% 53.1 % (20.5-51.1); MCH 32.2 PG (27-31); MCHC 31.6 g/dL (33-37); MCV 101.9 FL (81-99); MONO# 1.01 X1000 (0.11-0.59); MONO% 5.4 % (1.7-9.3); MPV 9.5 FL (7.4-10.4); NEUT# 7.23 X1000 (1.4-6.5); PLT 59 X1000 (130-400); RBC 2.08 XMIL (4.7-6.1); WBC 18.56 X1000 (4.8-10.8)
[2019-08-29] MEDS ORDERED: NS 500 ML IV ONE (07:08)
[2019-08-29 07:23] LABS: AGAP 12; ALBUMIN 2.7 g/dL (3.5-5.0); BUN 30 mg/dL (8-22); CALCIUM 8.4 mg/dL (8.8-10.2); CHLORIDE 107 mmol/L (98-107); COSMO 299; CREATININE 0.7 mg/dL (0.7-1.2); ESTIMATED GFR > 60; GLUCOSE 131 mg/dL (70-104); POTASSIUM 3.3 mmol/L (3.5-5.1); SODIUM 146 mmol/L (136-145); TCO2 27 mmol/L (25-35)
[2019-08-29 07:25] LABS: INR 1.67; PROTIME 20.1 Seconds (11.0-16.0)
[2019-08-29 07:47] LABS: ALB/GLOB RATIO 1.3; ALBUMIN 2.8 g/dL (3.5-5.0); DIRECT BILIRUBIN 0.2 mg/dL (0.00-0.20); TOTAL BILIRUBIN 0.52 mg/dL (0.20-1.00); TOTAL PROTEIN 4.9 g/dL (6.3-8.3)
[2019-08-29 07:49] LABS: BANDS 4 % (0-1); LYMPHS 58 % (21-51); MONO 2 % (1-9); SEGS 34 % (42-75)
[2019-08-29 07:50] LABS: HYPOCHROM 1+
[2019-08-29] MEDS: LASIX IV SCH (08:58)
[2019-08-29] MEDS: MEGACE LIQUID PO SCH ×2 (08:58→20:10)
[2019-08-29] MEDS: CULTURELLE PO SCH ×2 (08:59→20:10)
[2019-08-29] MEDS: LOPRESSOR PO SCH ×2 (08:59→20:10)
[2019-08-29] MEDS ORDERED: KLOR-CON PO ONE (09:59)
[2019-08-29] MEDS: ZOFRAN IV PRN (11:31)
--- NOTE | 2019-08-29 13:08 | Diag Imaging Result Doc PS360 ---
CT ABDOMEN/PELVIS W/O CONTRAST - 08/29/2019 INDICATION: abdominal pain/GI bleed COMPARISON: None FINDINGS: There are small bilateral pleural effusions. There is some patchy bibasilar infiltrate that is nonspecific. There is cardiomegaly. Anemia is present. There is some slight dense contrast in the stomach. There are several calcified gallstones filling almost half of the gallbladder. No gallbladder distention or inflammatory changes. No radiodense renal stones. No hydronephrosis or hydroureter. There is some wall thickening/inflammation of the duodenal bulb and descending duodenum. No free air or free fluid. Several small diverticula of the sigmoid colon. There is some nonspecific presacral edema. No bowel obstruction. There is some soft tissue edema over the right hip. There is a right femoral neck stabilization john. There are high-grade compression fractures at L1 and L3 with 90% loss of height. These are age-indeterminate. IMPRESSION: 1. Wall thickening of the duodenal bulb and proximal duodenum suggesting duodenitis or peptic disease. 2. Gallstones in the gallbladder. 3. Mild diverticulosis coli. 4. Severe compression fractures in the lumbar spine. This exam was performed using automated exposure control, adjustment of mA or kV according to patient size, and/or use of iterative reconstruction technique Electronically signed by Rishi Albarran 08/29/2019 1:06 PM
[2019-08-29] MEDS ORDERED: NS 500 ML ONE (13:50)
--- NOTE | 2019-08-29 14:31 | INFECTIOUS DISEASE PROGRESS NO ---
DATE: 08/29/2019 PRESENT ILLNESS: The patient has a bilateral pneumonia. He has a one out of two blood cultures growing a coagulase negative Staph. This is a contaminant. MEDICATIONS: The patient is receiving ceftaroline 600 mg IV every 12 hours. The patient's coagulase negative Staph is a contaminant in the blood and does not require treatment. The patient's IgG level of 605 is not low enough to be benefitted by having IVIG. PHYSICAL EXAMINATION: Vital Signs: Temperature is 97.5 degrees, pulse 114, respirations 20, blood pressure 108/60. General: The patient today looks much better. He is trying to talk and he acknowledges that he is feeling better. Head, eyes, ears, nose, and throat: He has an expressive aphasia. There are no white patches on his mouth. Neck: He does not have any pain when he moves his neck. Lungs: Clear to auscultation. Cardiovascular: Regular heart rate. Abdomen: Soft and nontender. Neurologic: The patient has a right hemiparesis and an expressive aphasia. IMAGING AND LABORATORY DATA: The patient's CBC shows a white count of 18,560, hemoglobin 6.7, and platelet count 59,000. Creatinine is 0.7. GFR is greater than 60. ALT is 192. The patient is to have CT scan of the abdomen and pelvis today. ASSESSMENT AND PLAN: The patient has a bilateral pneumonia. I plan to continue ceftaroline. His white count is going up but he feels better and he looks better, and so I am going to continue ceftaroline, pending the results of the CT scan. COMORBIDITIES: The patient had a stroke, which resulted in a right hemiparesis and expressive aphasia. He also has myelodysplastic syndrome and he is elderly as well. cc: Hoang Cervantes MD
--- NOTE | 2019-08-29 16:08 | HEMO/ONC PROGRESS NOTE ---
DATE: 08/29/2019 ADMITTING PHYSICIAN: Denilson Rizvi MD REQUESTING PHYSICIAN: Denilson Rizvi MD SUBJECTIVE: The patient is currently lying supine in bed, ill-appearing, but in no acute distress. OBJECTIVE: Vital Signs: Temperature 98.1, blood pressure 126/67, heart rate 123, respirations 18, and O2 saturation 100% on room air. HEENT: Normocephalic, atraumatic. Mucous membranes are pale and moist. Sclerae anicteric. Extraocular movements intact. Neck: Supple. Lungs: Clear to auscultation bilaterally. Chest expansion is equal bilaterally. Cardiovascular: S1, S2 is heard without murmur, rub, or gallop. Abdomen: Nondistended. Extremities: No clubbing, cyanosis, or edema. Dermatologic: The patient does have bruises covering his body with petechiae on bilateral lower extremities. Neurologic: The patient is awake, alert, and oriented x3. He has dense right hemiparesis. LABORATORY DATA: Hemoglobin 7, hematocrit 21.4, white blood cell count is 14.43, and platelet count is 50,000. Sodium 144, potassium 3.5, chloride 109, CO2 is 24, BUN 42, creatinine 0.9, and glucose is 153. ASSESSMENT AND PLAN: 1. Myelodysplastic syndrome. The patient has been on Vidaza, last dose was on 08/08/2019. We will continue to hold treatment until the patient's acute illness improves. 2. Anemia. Hemoglobin is currently 6.7. We will transfuse 1 unit packed red blood cells at this time. 3. Thrombocytopenia. Platelet count is 59,000. We will transfuse if platelet count drops below 20,000 or in the setting of active bleeding. 4. Acute hypoxemic respiratory failure, multifactorial, with pneumonia. The patient will continue on antibiotics. The patient also has acute pulmonary edema and is on diuretics. 5. Severe protein-calorie malnutrition. The patient will continue on Clinimix as provided and Ensure with each meal. 6. Hypokalemia, being replaced. 7. We will follow along and make further recommendations pending outcomes. The above reflects the history, exam, assessment and plan of Dr. Tafoya. Dictated by YESICA Marte for Gabriella Tafoya MD cc: YESICA Marte MD
[2019-08-29] MEDS ORDERED: SOLU-MEDROL IV ONE (16:21)
[2019-08-29] MEDS ORDERED: PEPCID IV ONE (16:22)
[2019-08-29] MEDS ORDERED: BENADRYL IV ONE (16:22)
[2019-08-29] MEDS ORDERED: SODIUM CHLORIDE 0.9% INJ ONE (16:22)
--- NOTE | 2019-08-29 18:10 | PROGRESS NOTE ---
DATE: 08/29/2019 SUBJECTIVE: The patient appears to be in better spirits today. He is more awake and alert. OBJECTIVE: Vital Signs: Temperature 97.4 degrees, blood pressure 114/56, heart rate 110, respirations 18, and O2 saturation 99% on 2 liters nasal cannula. Intake 1.9 liters, output 1.4 liters. General: This is a chronically ill-appearing elderly male, sitting up in bed, in no acute distress. Heart: S1 and S2 normal. Tachycardic. Lungs: Diminished breath sounds at the bases. No wheezing. Abdomen: Positive bowel sounds. Soft, nontender, nondistended. Extremities: There is 1+ edema in the right leg. No edema in the left leg. Neurologic: The patient is alert and oriented x3. The patient has left hemiparesis. LABORATORIES: White blood cell count 18, hemoglobin 6.7, hematocrit 21, platelets 59,000. Sodium 146, potassium 3.3, chloride 107, CO2 of 27, BUN 30, creatinine 0.7, glucose 131, magnesium 1.8, phosphorus 3, albumin 2.8. ASSESSMENT AND PLAN: 1. Acute hypoxemic respiratory failure. Continue with supplemental oxygen to treat the underlying issues. 2. Bilateral lobe pneumonia. Continue with antibiotic therapy. 3. Acute pulmonary edema. Improved. 4. Possible gastrointestinal bleed. The patient is now having melena and has been requiring a blood transfusion almost every day. We will continue to monitor closely. The patient is considering hospice. 5. Myelodysplastic syndrome. The patient will receive a packed red blood cell transfusion today. The platelet count is acceptable today. 6. Hypokalemia. Will replace the patient's potassium. 7. Immunoglobulin deficiency. Aware. 8. Severe protein-calorie malnutrition. Continue on Megace and Clinimix. 9. Disposition. The patient and his family have met with palliative care and will discuss their plans regarding possible transition to hospice care. The patient is currently a Do Not Resuscitate level 1. cc: Hina Landa MD MTDD
[2019-08-29 22:19] LABS: HEMATOCRIT 24.9 % (42.0-52.0)
[2019-08-30] MEDS: CLINIMIX E 4.25%-5% SOLUTION 1,000 ML IV SCH ×2 (00:22→14:31)
[2019-08-30] MEDS: TEFLARO 600 MG in NS 250 ML IV SCH ×3 (00:22→23:49)
[2019-08-30 03:41] LABS: URINE SOURCE CLEAN CATCH
[2019-08-30 03:43] LABS: BILIRUBIN URINE NEGATIVE (NEGATIVE); BLOOD URINE NEGATIVE (NEGATIVE); COLOR YELLOW; GLUCOSE URINE 150 mg/dL (NEGATIVE); KETONE URINE NEGATIVE (NEGATIVE); LEUKOCYTES URINE NEGATIVE (NEGATIVE); NITRITE URINE NEGATIVE (NEGATIVE); PH URINE 6.5; PROTEIN URINE TRACE mg/dL (NEGATIVE); SP GRAVITY URINE 1.023; TURBIDITY URINE CLEAR (CLEAR); UROBILINOGEN URINE NORMAL (NORMAL)
[2019-08-30 03:45] LABS: UR EPITHELIAL CELLS <10 /HPF (<10); URINE BACTERIA NEGATIVE /HPF; URINE RBC <10 /HPF (<10); URINE WBC <10 /HPF (<10)
[2019-08-30] MEDS: XOPENEX NEB INH SCH ×4 (04:59→22:55)
[2019-08-30 08:16] LABS: BASO# 0.05 X1000 (0.0-0.2); BASO% 0.7 % (0.0-0.8); EOS# 0.04 X1000 (0.0-0.7); EOS% 0.5 % (0.0-10.0); HEMATOCRIT 24.2 % (42.0-52.0); HEMOGLOBIN 7.8 g/dL (14.0-18.0); IMM GRAN# 0.02 X1000 (0.0-0.04); IMM GRAN% 0.3 % (0.0-0.5); LYMPH# 3.79 X1000 (1.2-3.4); LYMPH% 51.1 % (20.5-51.1); MCH 31.8 PG (27-31); MCHC 32.2 g/dL (33-37); MCV 98.8 FL (81-99); MONO# 0.27 X1000 (0.11-0.59); MONO% 3.6 % (1.7-9.3); NEUT# 3.24 X1000 (1.4-6.5); NEUT% 43.8 % (42.2-75.2); PLT 30 X1000 (130-400); RBC 2.45 XMIL (4.7-6.1); RDW 20.2 % (11.5-14.5); WBC 7.41 X1000 (4.8-10.8)
[2019-08-30 08:21] LABS: AGAP 11; ALB/GLOB RATIO 1.1; ALBUMIN 2.6 g/dL (3.5-5.0); ALKALINE PHOSPHATASE 103 U/L (32-122); BUN 40 mg/dL (8-22); CALCIUM 8.1 mg/dL (8.8-10.2); CHLORIDE 109 mmol/L (98-107); COSMO 301; CREATININE 0.6 mg/dL (0.7-1.2); ESTIMATED GFR > 60; GLUCOSE 177 mg/dL (70-104); GOT 9 U/L (10-34); GPT 99 U/L (10-44); PHOSPHORUS 4.5 mg/dL (2.7-4.5); POTASSIUM 4.8 mmol/L (3.5-5.1); SODIUM 144 mmol/L (136-145); TCO2 24 mmol/L (25-35); TOTAL BILIRUBIN 0.53 mg/dL (0.20-1.00); TOTAL PROTEIN 4.9 g/dL (6.3-8.3)
[2019-08-30 09:19] LABS: ANISOCYTOSIS 1+; EOS 2 % (1-10); LYMPHS 51 % (21-51); MICROCYTOSIS 1+; MONO 5 % (1-9); POIKILOCYTOSIS 1+; SEGS 42 % (42-75)
[2019-08-30 09:20] LABS: LARGE PLATELETS OCCASIONAL; TARGET CELLS 1+
[2019-08-30] MEDS: LASIX IV SCH (09:20)
[2019-08-30] MEDS: CULTURELLE PO SCH ×3 (09:20→21:21)
[2019-08-30] MEDS: MEGACE LIQUID PO SCH ×3 (09:20→21:22)
[2019-08-30] MEDS: LOPRESSOR PO SCH ×3 (09:20→21:22)
--- NOTE | 2019-08-30 18:09 | PROGRESS NOTE ---
DATE: 08/30/2019 SUBJECTIVE: The patient is sitting up in bed. He states that he feels a lot better today. OBJECTIVE: Vital signs: Temperature 98.6 degrees, blood pressure 113/67, heart rate 102, respirations 16, O2 saturation 96% on 2 L nasal cannula. Intake 2.2 L, output 2 L. General: This is a chronically ill-appearing elderly male lying in bed in no acute distress. Heart: S1, S2 normal. Tachycardic. Lungs: Diminished breath sounds at the bases. No wheezing. Abdomen: Positive bowel sounds. Soft, nontender, nondistended. Extremities: Edema +1 in the right lower extremity. Neurologic: The patient is alert and oriented x3. LABORATORY DATA: White blood cell count 7.4, hemoglobin 7.8, hematocrit 24, platelets 30,000. Sodium 144, potassium 4.8, chloride 109, CO2 is 24, BUN 40, creatinine 0.6, glucose 67. ASSESSMENT AND PLAN: 1. Acute hypoxemic respiratory failure. Continue to treat the underlying pneumonia and volume issues. 2. Bilateral lobe pneumonia. Continue on the current antibiotic regimen as directed by Dr. Cervantes. 3. Acute pulmonary edema. Slowly improving. Continue with diuretic therapy. 4. Anemia. The hemoglobin and hematocrit is a little bit lower today. The patient did receive 1 unit of packed red blood cells yesterday. 5. Possible gastrointestinal bleed. We will monitor the hemoglobin and hematocrit closely and transfuse as necessary. 6. Myelodysplastic syndrome. Aware. 7. Immunoglobulin deficiency. Aware. 8. Severe protein-calorie malnutrition. Continue on Megace and Clinimix. 9. Disposition. The patient is currently a Do Not Resuscitate/Allow Natural level 1. The patient and his family are scheduled to meet with Palliative Care on Sunday to discuss possible transition to hospice care. cc: Hina Landa MD
[2019-08-31] MEDS: CLINIMIX E 4.25%-5% SOLUTION 1,000 ML IV SCH ×2 (02:59→16:24)
[2019-08-31] MEDS: XOPENEX NEB INH SCH ×4 (05:22→22:55)
[2019-08-31 07:54] LABS: BASO# 0.03 X1000 (0.0-0.2); BASO% 0.4 % (0.0-0.8); EOS# 0.14 X1000 (0.0-0.7); EOS% 1.9 % (0.0-10.0); HEMATOCRIT 23.8 % (42.0-52.0); HEMOGLOBIN 7.9 g/dL (14.0-18.0); IMM GRAN# 0.07 X1000 (0.0-0.04); IMM GRAN% 0.9 % (0.0-0.5); LYMPH# 2.75 X1000 (1.2-3.4); LYMPH% 36.9 % (20.5-51.1); MCH 32.9 PG (27-31); MCHC 33.2 g/dL (33-37); MCV 99.2 FL (81-99); MONO# 0.26 X1000 (0.11-0.59); MONO% 3.5 % (1.7-9.3); NEUT# 4.21 X1000 (1.4-6.5); NEUT% 56.4 % (42.2-75.2); RDW 19.7 % (11.5-14.5); WBC 7.46 X1000 (4.8-10.8)
[2019-08-31 07:57] LABS: INR 1.65; PLT 29 X1000 (130-400); PROTIME 19.8 Seconds (11.0-16.0)
[2019-08-31 08:19] LABS: AGAP 8; ALB/GLOB RATIO 1.3; ALBUMIN 2.8 g/dL (3.5-5.0); ALKALINE PHOSPHATASE 94 U/L (32-122); BUN 39 mg/dL (8-22); CALCIUM 8.7 mg/dL (8.8-10.2); CHLORIDE 109 mmol/L (98-107); COSMO 298; CREATININE 0.7 mg/dL (0.7-1.2); ESTIMATED GFR > 60; GLUCOSE 168 mg/dL (70-104); GOT 7 U/L (10-34); GPT 56 U/L (10-44); PHOSPHORUS 3.2 mg/dL (2.7-4.5); POTASSIUM 4.4 mmol/L (3.5-5.1); SODIUM 143 mmol/L (136-145); TCO2 26 mmol/L (25-35); TOTAL BILIRUBIN 0.48 mg/dL (0.20-1.00); TOTAL PROTEIN 4.9 g/dL (6.3-8.3)
[2019-08-31] MEDS: LOPRESSOR PO SCH ×2 (10:02→20:02)
[2019-08-31] MEDS: MEGACE LIQUID PO SCH ×2 (10:02→20:02)
[2019-08-31] MEDS: LASIX IV SCH (10:02)
[2019-08-31] MEDS: CULTURELLE PO SCH ×2 (10:02→20:02)
[2019-08-31] MEDS: TEFLARO 600 MG in NS 250 ML IV SCH (12:47)
[2019-08-31] MEDS: ALBUMIN 25% IV SCH (16:17)
--- NOTE | 2019-08-31 17:44 | PROGRESS NOTE ---
DATE: 08/31/2019 SUBJECTIVE: The patient is resting comfortably. No acute events noted overnight. His is present at the bedside. OBJECTIVE: Vital Signs: Temperature 98.1 degrees, blood pressure 110/60, heart rate 94, respirations 16, O2 saturation is 99% on 2 L nasal cannula. General: This is a chronically ill- appearing, elderly male lying comfortably in bed, in no acute distress. Heart: S1, S2 normal. Tachycardic. Lungs: Equal air entry bilaterally. No wheezing. No rales. Abdomen: Positive bowel sounds. Soft, nontender, nondistended. Extremities: Trace edema in the right leg. Neurologic: The patient is alert and oriented x4. LABS: White blood cell count 7.4, hemoglobin 7.9, hematocrit 23, platelets 29,000. Sodium 143, potassium 4.4, chloride 109, CO2 26, BUN 39, creatinine 0.7, glucose 168, phosphorus 3.2, magnesium 2.2. AST 7, ALT 56, alkaline phosphatase 94. ASSESSMENT AND PLAN: 1. Acute hypoxemic respiratory failure. Continue to treat the underlying pneumonia. 2. Bilateral lobe pneumonia. We will order a chest x-ray to be done tomorrow. Continue with antibiotic therapy as directed by Dr. Cervantes. 3. Pulmonary edema. The patient is on diuretic therapy. 4. Anemia. Stable. 5. Myelodysplastic syndrome. Aware. 6. History of stroke with hemiparesis. Aware. 7. Protein calorie malnutrition. Continue on Clinimix and Megace. 8. Disposition. The patient and his family are scheduled to meet with palliative care tomorrow to decide about possible discharge home with hospice. cc: Hina Landa MD
[2019-09-01] MEDS: TEFLARO 600 MG in NS 250 ML IV SCH (00:19)
[2019-09-01] MEDS: XOPENEX NEB INH SCH ×4 (05:27→22:22)
[2019-09-01] MEDS: CLINIMIX E 4.25%-5% SOLUTION 1,000 ML IV SCH (05:46)
[2019-09-01 07:40] LABS: BASO# 0.03 X1000 (0.0-0.2); BASO% 0.4 % (0.0-0.8); EOS# 0.16 X1000 (0.0-0.7); EOS% 2.4 % (0.0-10.0); HEMATOCRIT 24.7 % (42.0-52.0); HEMOGLOBIN 7.8 g/dL (14.0-18.0); IMM GRAN# 0.03 X1000 (0.0-0.04); IMM GRAN% 0.4 % (0.0-0.5); LYMPH# 3.18 X1000 (1.2-3.4); LYMPH% 47.5 % (20.5-51.1); MCH 31.6 PG (27-31); MCHC 31.6 g/dL (33-37); MPV 9.6 FL (7.4-10.4); NEUT# 2.69 X1000 (1.4-6.5); NEUT% 40.3 % (42.2-75.2); RBC 2.47 XMIL (4.7-6.1); RDW 19.2 % (11.5-14.5); WBC 6.69 X1000 (4.8-10.8)
[2019-09-01 07:42] LABS: PLT 11 X1000 (130-400)
[2019-09-01 07:51] LABS: EOS 1 % (1-10); LYMPHS 48 % (21-51); MONO 10 % (1-9); SEGS 41 % (42-75)
[2019-09-01 08:29] LABS: INR 1.59; PROTIME 19.2 Seconds (11.0-16.0)
[2019-09-01] MEDS: MEGACE LIQUID PO SCH ×2 (08:49→21:57)
[2019-09-01] MEDS: ALBUMIN 25% IV SCH (08:49)
[2019-09-01] MEDS: CULTURELLE PO SCH ×2 (08:49→21:58)
[2019-09-01] MEDS: LASIX IV SCH (08:50)
[2019-09-01] MEDS: LOPRESSOR PO SCH ×2 (08:50→21:57)
[2019-09-01 08:51] LABS: AGAP 11; ALB/GLOB RATIO 1.7; ALBUMIN 3.3 g/dL (3.5-5.0); ALKALINE PHOSPHATASE 91 U/L (32-122); BUN 38 mg/dL (8-22); CALCIUM 8.9 mg/dL (8.8-10.2); CHLORIDE 108 mmol/L (98-107); COSMO 294; CREATININE 0.6 mg/dL (0.7-1.2); ESTIMATED GFR > 60; GLUCOSE 125 mg/dL (70-104); GOT 7 U/L (10-34); GPT 34 U/L (10-44); POTASSIUM 4.7 mmol/L (3.5-5.1); SODIUM 142 mmol/L (136-145); TCO2 23 mmol/L (25-35); TOTAL BILIRUBIN 0.77 mg/dL (0.20-1.00); TOTAL PROTEIN 5.2 g/dL (6.3-8.3)
[2019-09-01] MEDS: NS NEB INH SCH ×2 (09:38→15:31)
[2019-09-01] MEDS ORDERED: SOLU-MEDROL IV ONE ×2 (12:47→17:00)
[2019-09-01] MEDS ORDERED: NS 500 ML IV ONE (13:39)
[2019-09-01] MEDS ORDERED: BENADRYL IV ONE (13:49)
[2019-09-01] MEDS ORDERED: LASIX IV ONE (15:00)
--- NOTE | 2019-09-01 18:29 | INFECTIOUS DISEASE PROGRESS NO ---
DATE: 09/01/2019 The patient is going home tomorrow under the care of hospice with comfort measures only. I have talked to Dr. Landa, and our plan is to stop the patient's antibiotic that he is on now, namely ceftaroline, and as mentioned above, he is going to be discharged home tomorrow under the care of the hospice. I am signing off of the patient's case. cc: Hoang Cervantes MD
--- NOTE | 2019-09-01 18:51 | PROGRESS NOTE ---
DATE: 09/01/2019 SUBJECTIVE: The patient is resting comfortably in bed. He has no complaints today. OBJECTIVE: Vital Signs: Temperature 98.6 degrees, blood pressure 121/80, heart rate 84, respirations 20, O2 saturation 96% on 2 L nasal cannula. General: This is a chronically ill- appearing elderly male sitting up in bed in no acute distress. Heart: S1, S2 normal. Regular rate and rhythm. Lungs: Diminished breath sounds at the bases. No wheezing. No rales. Abdomen: Positive bowel sounds. Soft, nontender, nondistended. Extremities: Trace edema in the right leg. No edema in the left. Neurologic: The patient is alert and oriented x4. LABS: White blood cell count 6.6, hemoglobin 7.8, hematocrit 24, platelets 11,000. Sodium 142, potassium 4.7, chloride 108, CO2 23, BUN 38, creatinine 0.6, glucose 125. ASSESSMENT AND PLAN: 1. Acute hypoxemic respiratory failure. Continue with supplemental oxygen. 2. Bilateral lobe pneumonia. We will discontinue the antibiotic therapy since the patient will be discharged home tomorrow with hospice services. 3. Anemia. We will transfuse 1 unit of packed red blood cells today. 4. Myelodysplastic syndrome. Aware. 5. Severe thrombocytopenia. The patient will receive 1 unit of platelets today. 6. Disposition. The patient and his family have agreed to be discharged home with hospice tomorrow under the care of [facility]. cc: Hina Landa MD
[2019-09-01] MEDS ORDERED: NS 250 ML ONE (23:43)
[2019-09-02] MEDS: XOPENEX NEB INH SCH ×2 (03:23→09:39)
[2019-09-02] MEDS: CLINIMIX E 4.25%-5% SOLUTION 1,000 ML IV SCH (04:57)
[2019-09-02 07:05] LABS: BASO# 0.01 X1000 (0.0-0.2); BASO% 0.4 % (0.0-0.8); EOS# 0.01 X1000 (0.0-0.7); EOS% 0.4 % (0.0-10.0); LYMPH# 1.14 X1000 (1.2-3.4); LYMPH% 51.1 % (20.5-51.1); MCH 31.1 PG (27-31); MCV 97.3 FL (81-99); MONO# 0.11 X1000 (0.11-0.59); MONO% 4.9 % (1.7-9.3); MPV 10.8 FL (7.4-10.4); NEUT# 0.96 X1000 (1.4-6.5); NEUT% 43.2 % (42.2-75.2); PLT 49 X1000 (130-400); RBC 2.57 XMIL (4.7-6.1); RDW 17.5 % (11.5-14.5); WBC 2.23 X1000 (4.8-10.8)
[2019-09-02 07:25] LABS: AGAP 9; ALB/GLOB RATIO 1.7; ALBUMIN 3.5 g/dL (3.5-5.0); ALKALINE PHOSPHATASE 92 U/L (32-122); BUN 39 mg/dL (8-22); CALCIUM 8.6 mg/dL (8.8-10.2); CHLORIDE 104 mmol/L (98-107); COSMO 294; CREATININE 0.7 mg/dL (0.7-1.2); ESTIMATED GFR > 60; GLUCOSE 157 mg/dL (70-104); GOT 10 U/L (10-34); GPT 23 U/L (10-44); POTASSIUM 4.7 mmol/L (3.5-5.1); SODIUM 141 mmol/L (136-145); TCO2 28 mmol/L (25-35); TOTAL BILIRUBIN 0.99 mg/dL (0.20-1.00); TOTAL PROTEIN 5.6 g/dL (6.3-8.3)
[2019-09-02 07:45] LABS: LYMPHS 54 % (21-51); MONO 2 % (1-9); SEGS 36 % (42-75)
--- NOTE | 2019-09-02 08:30 | PROGRESS NOTE ---
DATE: 09/02/2019 SUBJECTIVE: Mr. Pedraza feels good. He denied any pain. He said he slept good last night. OBJECTIVE: Temperature 98 degrees, pulse 80, respirations 20, and blood pressure 128/71. Pupils are equal and round. Lungs are clear anterolateral and posterior in all lung arshad. Cardiovascular with regular rhythm and rate without murmur or S3. Abdomen is soft. Skin is warm and dry. Urine output is about 500 mL. ASSESSMENT AND PLAN: 1. Acute hypoxemic respiratory failure. Continue supplemental O2 as he appears to have bilateral lower lobe pneumonia. Continue present antibiotics, and continue pulmonary toilet. 2. Anemia. We gave him 1 unit of packed red blood cells yesterday. 3. Myelodysplastic syndrome. Aware. 4. Severe thrombocytopenia. He got 1 unit of platelets as well. 5. Disposition. Family wants to be discharged with hospice. I guess that is the plan today. His platelet count is up to 49,000, hematocrit 25, hemoglobin 8, and white count 2230. I guess I will get things ready for discharge. cc: Denilson Rizvi MD
[2019-09-02] MEDS: MEGACE LIQUID PO SCH (09:36)
[2019-09-02] MEDS: LOPRESSOR PO SCH (09:36)
[2019-09-02] MEDS: LASIX IV SCH (09:36)
[2019-09-02] MEDS: CULTURELLE PO SCH (09:36)
[2019-09-02 11:06] VITALS: BP 110/58
--- NOTE | 2019-09-02 15:01 | DISCHARGE SUMMARY ---
ADMISSION DATE: 08/25/2019 DISCHARGE DATE: 09/02/2019 This is a 74-year-old patient of Dr. Evita Knutson. He is followed by Dr. Ortiz. He presented with weakness and found to have platelet count very low and with anemia, lives with his . He had left carotid occlusive stroke in 2004. It caused right hemiparesis and aphasia and he has myelodysplastic syndrome and history of cardiovascular disease. PAST SURGICAL HISTORY: Had a hip fracture in 2005. history of appendectomy and left knee surgery. Allergies: Naproxen. ADMISSION DIAGNOSIS: Myelodysplasia, myelodysplastic syndrome. Elevated white count. Suspect this is related to the myelodysplasia, predominantly neutrophils and lymphocytes were low. Hemoglobin was low though as well. MCV was 112. Gave 2 units packed red blood cells and he had a chest x-ray. Chest CT on 08/26, cardiomegaly, bilateral pulmonary edema, left greater than right small bilateral pleural effusions, stable right hemidiaphragm elevation, and gallstones in the gallbladder. Renal ultrasound on 08/26, no evidence of obstructive uropathy. Extremity venous study, no DVT or SVT of the of the right upper extremity. Hematology and Oncology was followed. He had a good response to Vidaza and had been monitored in the clinic secondary to thrombocytopenia and anemia. The plan was to hold the treatment until patient's acute illness improved. He had profound thrombocytopenia. Platelet count is 6000, status post transfusion, profound anemia, leukocytosis. He did get some Neulasta. Infectious Disease was asked to see, possible pneumonia, pulmonary venous congestion. He had 1 of 2 cultures growing coagulase- negative Staph, which could be contaminant. He has a low IgG level at 605 and the patient's IgA level was normal at 155, so continue to treat with antibiotics. He had acute hypoxemic respiratory failure which felt was multifactorial, treating for bilateral pneumonia, acute pulmonary edema, severe protein calorie malnutrition, hypokalemia, myelodysplastic syndrome, immunoglobulin insufficiency. The family had discussed and wanted to pursue going home with hospice care and so his blood counts today on the day of discharge, white count 2230, hematocrit 25, hemoglobin 8, platelet count 49,000. Chemistries, sodium 141, potassium 4.7, chloride 104, BUN 39, creatinine 0.7. We will discharge home. I guess he can have Tylenol 650 p.o. q. 6 hours p.r.n. I will give him Lasix 40 mg p.o. daily, Culturelle 1 b.i.d., Megace 200 mg b.i.d., Lopressor 25 mg b.i.d., morphine IR 15 mg p.o. q. 6 hours p.r.n. and sent him home with hospice. cc: Denilson Rizvi MD
--- NOTE | 2019-09-03 15:55 | PROGRESS NOTE ---
DATE: 08/26/2019 SUBJECTIVE: The patient is resting in bed. He states that he has no complaints at this time. OBJECTIVE: Vital Signs: T max 100, blood pressure 133/68, heart rate 99, respirations 18, O2 96% on 3 liters nasal cannula. Intake 1.7 liters. General: There is a chronically ill-appearing elderly male lying in bed, in no acute distress. Heart: S1, S2 normal. Tachycardic. Lungs: Coarse breath sounds bilaterally. Abdomen: Positive bowel sounds. Soft, nontender, nondistended. Extremities: Two-plus edema in the right leg. Trace edema in the left leg. The patient also has petechiae involving both lower extremities. Neurologic: The patient is alert and oriented times 4. LABORATORY STUDIES: White blood cell 13, hemoglobin 7.5, hematocrit 22, platelets 43. Sodium 141, potassium 4, chloride 103, CO2 22, BUN 59, creatinine 1.5. Glucose 166. Total bilirubin 1.2. AST 211. ALT 365. Alkaline phosphatase 125. Chest CT revealed cardiomegaly, bilateral pulmonary edema and small bilateral pleural effusions. ASSESSMENT AND PLAN: 1. Acute hypoxemic respiratory failure. The patient has pulmonary edema and pleural effusions. 2. Acute pulmonary edema. Multifactorial. The patient has an ejection fraction of 65%. The patient did receive three units of blood products yesterday. Will give the patient a trial of Lasix and monitor his respiratory status closely. 3. Bilateral pleural effusions. Aware. 4. MDS. Management as per the food storeroom clerk. 5. Possible pneumonia. Continue with broad spectrum antibiotic therapy. 6. Acute kidney injury. Slowly improving. 7. Elevated LFTs. Will check a hepatitis profile. Will monitor the LFTs closely. Will also order an abdominal ultrasound. 8. Protein calorie malnutrition. Will start the patient on Megace. 9. Will consult Physical Therapy. cc: Hina Landa MD
== END 2019-09-02 15:24 | disposition hospice, home (50) | DRG 811 ==
LOC: ED 11:48 → 3N 11:49 → SUATTDRO 11:49
PROVIDERS: ATTEND Emergency Medicine